=== PATIENT | female | born 1990 | race Caucasian/White ===

== ENCOUNTER 2019-06-16 21:30 | Emergency (ER) | payer SELFPAY ==
--- NOTE | 2019-06-16 23:33 | ER Document Report ---
ED Skin Rash/Insect Bite/Abscs - General Chief Complaint: Skin Problem Stated Complaint: POSSIBLE INFECTION RIGHT LEG Time Seen by Provider: 06/16/19 23:32 Mode of Arrival: Ambulatory Information source: Patient, Parent Notes: HISTORY OF PRESENT ILLNESS: Patient is a 29-year-old female with a past medical history of necrotizing fasciitis of the right leg secondary to IV drug use who presents with pain and drainage from the right leg wound. Patient reports that she had "multiple surgeries" at another facility for necrotizing fasciitis over the last couple months, she also reports she signed out AGAINST MEDICAL ADVICE from her last facility "to build my boyfriend out of shelter, now he is ." She denies fevers or chills, no other symptoms. Mechanism of injury: IV drug use Location: Right lower leg Onset: "Months ago" Provocation: Movement Quality: Burning Radiation: None Severity: Severe Timing: Constant Numbness/Tingling: None Associated symptoms: Denies fevers or chills REVIEW OF SYSTEMS: CONSTITUTIONAL : Denies fever or chills, no sweats. Denies recent illness. EENT: Denies eye, ear, throat, or mouth pain or symptoms. Denies nasal or sinus congestion. CARDIOVASCULAR: Denies chest pain. RESPIRATORY: Denies cough, cold, or chest congestion. Denies shortness of b reath, difficulty breathing, or wheezing. GASTROINTESTINAL: Denies abdominal pain. Denies nausea, vomiting, or diarrhea. Denies constipation. GENITOURINARY: Denies difficulty urinating, painful urination, burning, frequency, or blood in urine. FEMALE GENITOURINARY: Denies vaginal bleeding, abnormal or irregular periods. Last menstrual period MUSCULOSKELETAL: Positive for right leg wound and drainage. Denies neck or back pain or joint pain or swelling. SKIN: Denies rash or skin lesions. HEMATOLOGIC : Denies easy bruising or bleeding. LYMPHATIC: Denies swollen, enlarged glands. NEUROLOGICAL: Denies weakness or paralysis or loss of use of either side. Denies problems with gait or speech. Denies sensory or motor loss. PSYCHIATRIC: Denies anxiety or stress or depression. All other systems reviewed and negative. PHYSICAL EXAMINATION: GENERAL: Well-appearing, well-nourished and in no acute distress. HEAD: Atraumatic, normocephalic. No scalp deformity, depression, or crepitance. EYES: Pupils are 3 mm and equal/round/reactive to light, extraocular movements intact, sclera anicteric, conjunctiva are normal. ENT: Nares patent bilaterally, oropharynx clear without exudates or palatal petechia. Moist mucous membranes. No tonsil hypertrophy. NECK: Normal range of motion, supple without lymphadenopathy. LUNGS: Breath sounds present, equal, and clear to auscultation bilaterally. No wheezes, rales, or rhonchi. HEART: Regular rate and rhythm without murmurs, rubs, or gallops. 2+ peripheral pulses. Normal capillary refill. ABDOMEN: Soft, nontender, nondistended. Normoactive bowel sounds. No guarding, no rebound. No masses appreciated. BACK: Normal contour, no midline tenderness. Rectal exam deferred. GENITAL/PELVC: Deferred. EXTREMITIES: Large 5 cm x 20 cm area of excoriated and friable tissue, granulation tissue appears well vascularized, clear drainage, no purulence or bleeding. Normal range of motion, no obvious deformity. No pitting or edema. N o cyanosis and normal capillary refill <2 seconds. NEUROLOGICAL: No focal neurological deficits. Moves all extremities spontaneously and on command. PSYCH: Normal mood, normal affect. No suicidal thoughts/ideations. No homicidal thoughts/ideations. No hallucinations. SKIN: Warm, dry, normal turgor, no rashes or lesions noted. ASSESSMENT AND PLAN: This patient is a 29-year-old female who presents with concern for cellulitis versus necrotizing fasciitis in the right lower leg. 1. Will obtain labs, total CK level, and CT scan of the right leg. 2. Will give IV morphine for pain control as well as vancomycin for antibiotic coverage. TRAVEL OUTSIDE OF THE [place]. IN LAST 30 DAYS: No - HPI Patient complains to provider of: Skin rash/lesion, Tender/swollen area Onset: Other - "Months ago" Onset/Duration: Gradual Quality of pain: Achy, Burning, Sharp Severity: Severe Pain Level: 5 Skin Character: Drainage, Erythema, Lesion, Tenderness Skin Temperature: Warm Quality of rash: Itchy, Painful, Burning Identify cause: Yes - "Necrotizing infection" Exacerbated by: Movement Relieved by: Denies Similar symptoms previously: Yes Recently seen / treated by doctor: Yes - Related Data Allergies/Adverse Reactions: No Known Allergies Allergy (Unverified 06/16/19 22:56) Past Medical History - General Information source: Patient, Parent - Social History Smoking Status: Never Smoker Chew tobacco use (# tins/day): No Frequency of alcohol use: None Drug Abuse: None Lives with: Family Family History: Reviewed & Not Pertinent Patient has suicidal ideation: No Patient has homicidal ideation: No - Past Medical History Cardiac Medical History: Reports: None Pulmonary Medical History: Reports: None EENT Medical History: Reports: None Neurological Medical History: Reports: None Endocrine Medical History: Reports: None Renal/ Medical History: Reports: None Malignancy Medical History: Reports: None GI Medical History: Reports: None Musculoskeletal Medical History: Reports None Skin Medical History: Reports None Psychiatric Medical History: Reports: None Traumatic Medical History: Reports: None Infectious Medical History: Reports: None Past Surgical History: Reports: Other - History of multiple surgical debridem ents - Immunizations Immunizations up to date: Yes Hx Diphtheria, Pertussis, Tetanus Vaccination: Yes Review of Systems - Review of Systems Constitutional: No symptoms reported EENT: No symptoms reported Cardiovascular: No symptoms reported Respiratory: No symptoms reported Gastrointestinal: No symptoms reported Genitourinary: No symptoms reported Female Genitourinary: No symptoms reported Musculoskeletal: See HPI, Muscle pain, Leg swelling Skin: No symptoms reported Hematologic/Lymphatic: No symptoms reported Neurological/Psychological: No symptoms reported -: Yes All other systems reviewed and negative Physical Exam - Vital signs Vitals: Temp Pulse Resp BP Pulse Ox 98.0 F 90 18 119/83 100 06/16/19 21:36 06/16/19 21:36 06/16/19 21:36 06/16/19 21:36 06/16/19 21:36 Interpretation: Normal - General General appearance: Appears well, Alert - HEENT Head: Normocephalic, Atraumatic Eyes: Normal Pupils: PERRL - Respiratory Respiratory status: No respiratory distress Chest status: Nontender Breath sounds: Normal Chest palpation: Normal - Cardiovascular Rhythm: Regular Heart sounds: Normal auscultation Murmur: No - Abdominal Inspection: Normal Distension: No distension Bowel sounds: Normal Tenderness: Nontender Organomegaly: No organomegaly - Back Back: Normal, Nontender - Extremities General upper extremity: Normal inspection, Nontender, Normal color, Normal ROM, Normal temperature General lower extremity: Normal inspection, Nontender, Normal color, Normal ROM, Normal temperature, Normal weight bearing. No: Roni's sign - Neurological Neuro grossly intact: Yes Cognition: Normal Orientation: AAOx4 Guerda Coma Scale Eye Opening: Spontaneous [place] Coma Scale Verbal: Oriented Guerda Coma Scale Motor: Obeys Commands Guerda Coma Scale Total: 15 Speech: Normal Motor strength normal: LUE, RUE, LLE, RLE Sensory: Normal - Psychological Associated symptoms: Normal affect, Normal mood - Skin Skin Temperature: Warm Skin Moisture: Dry Skin Color: Normal Course - Re-evaluation Re-evalutation: 06/17/19 04:21 Labs are grossly unremarkable, CK level is actually lower than normal. X-rays are unremarkable and CT scan is consistent with cellulitis versus early myositis, no evidence of active osteomyelitis or necrotizing fasciitis. Urine is still pending. Patient will be given IV vancomycin and will be reassessed for possible discharge. 06/17/19 05:38 Will discharge the patient home with strict return precautions and follow-up with primary care as well as wound care. All results were explained to and discussed with the patient and her mother, and all questions addressed and answered for the patient. The patient and her mother voice both understanding and agreeing with the plan. - Vital Signs Vital signs: Temp Pulse Resp BP Pulse Ox 98.0 F 90 18 119/76 99 06/16/19 21:36 06/16/19 21:36 06/16/19 21:36 06/17/19 03:01 06/17/19 03:01 - Laboratory Result Diagrams: 06/16/19 23:41 06/17/19 01:06 Laboratory results interpreted by me: 06/16/19 06/17/19 06/17/19 23:41 01:06 03:26 Hgb 11.8 L Hct 34.7 L RDW 16.0 H Potassium 3.1 L Chloride 112 H Carbon Dioxide 21 L BUN 22 H Creatine Kinase 20 L Urine Protein 30 H Urine Urobilinogen 2.0 H - Diagnostic Test Radiology reviewed: Image reviewed, Reports reviewed Discharge - Discharge Clinical Impression: Cellulitis Qualifiers: Site of cellulitis: extremity Site of cellulitis of extremity: lower extremity Laterality: right Qualified Code(s): L03.115 - Cellulitis of right lower limb Condition: Good Disposition: HOME, SELF-CARE Instructions: Cellulitis ([facility]), Family Physicians / Practices Additional Instructions: You have been evaluated in the Emergency Department for pain in your right lower leg related to an infection called cellulitis. While here, you had blood work and a CT scan and it is now safe to be discharged home. Please follow-up with your primary physician as well as surgery and wound care as instructed in 1 week or soon as possible. Return to the Emergency Department if you experience worsening pain, swelling of your leg, high fevers, increased drainage from your wounds, or any other concerning symptoms. Prescriptions: Ciprofloxacin HCl [Cipro 500 mg Tablet] 500 mg PO BID #28 tablet Diclofenac Sodium 75 mg PO BID #60 tablet. Doxycycline Hyclate 100 mg PO BID #28 capsule Referrals: JANET CHRIS MD [ACTIVE STAFF] - Follow up as needed Print Language: Belarusian
[2019-06-16 23:52] LABS: ABSOLUTE BASOPHILS # (AUTO) 0.1 10^3/uL (0.0-0.2); ABSOLUTE EOSINOPHILS # (AUTO) 0.1 10^3/uL (0.0-0.6); ABSOLUTE LYMPHOCYTES (AUTO) 3.3 10^3/uL (0.5-4.7); ABSOLUTE MONOCYTES (AUTO) 0.8 10^3/uL (0.1-1.4); ABSOLUTE NEUT (AUTO) 5.5 10^3/uL (1.7-8.2); EOSINOPHILS % (AUTO) 1.1 % (0-6); HEMATOCRIT 34.7 % (36.0-47.0); HEMOGLOBIN 11.8 g/dL (12.0-15.5); LYMPHOCYTES % (AUTO) 33.7 % (13-45); MEAN CORPUSCULAR HEMOGLOBIN 29.1 pg (27.0-33.4); MEAN CORPUSCULAR VOLUME 86 fl (80-97); MONOCYTES % (AUTO) 8.2 % (3-13); PLATELET COUNT 380 10^3/uL (150-450); RED BLOOD COUNT 4.06 10^6/uL (3.72-5.28); TOTAL CELLS COUNTED % (AUTO) 100 %; WHITE BLOOD COUNT 9.8 10^3/uL (4.0-10.5)
--- NOTE | 2019-06-17 01:08 | RADIOLOGY REPORT (SQ) ---
Right tibia-fibula two view on 06/17/2019 at 12:16 AM CLINICAL INDICATION: Right leg pain, possible osteomyelitis, necrotizing infection COMPARISON: None FINDINGS: There is no radiopaque foreign body. There are no fractures. Visualized joints are well aligned. No bony abnormality is noted. No definite plain radiographic evidence of osteomyelitis is noted. There is no air in the soft tissues to suggest necrotizing fasciitis. IMPRESSION: No acute abnormality. If there is high clinical concern for osteomyelitis consider MRI.
[2019-06-17] MEDS ORDERED: MORPHINE SULFATE 10 MG/ML INJ IV ONE (01:10)
[2019-06-17 01:46] LABS: ALBUMIN 3.5 g/dL (3.5-5.0); ALKALINE PHOSPHATASE 91 U/L (38-126); ANION GAP 10 (5-19); ASPARTATE AMINO TRANSFERASE 16 U/L (14-36); BILIRUBIN,DIRECT 0.2 mg/dL (0.0-0.4); BILIRUBIN,TOTAL 0.2 mg/dL (0.2-1.3); BLOOD UREA NITROGEN 22 mg/dL (7-20); CALCIUM 8.8 mg/dL (8.4-10.2); CARBON DIOXIDE 21 mmol/L (22-30); CHLORIDE 112 mmol/L (98-107); CREATINE KINASE 20 U/L (30-135); GLUCOSE 104 mg/dL (75-110); POTASSIUM 3.1 mmol/L (3.6-5.0); TOTAL PROTEIN 6.7 g/dL (6.3-8.2)
--- NOTE | 2019-06-17 02:25 | RADIOLOGY REPORT (SQ) ---
EXAM DESCRIPTION: CT LOWER EXTREMITY WITHOUT IV CONTRAST COMPLETED DATE/TME: 06/17/2019 01:10 CLINICAL HISTORY: 29 years, Female, necrotizing infection to right white COMPARISON: Plain films 06/17/2019 TECHNIQUE: 734 Images stored on PACS. All CT scanners at this facility use dose modulation, iterative reconstruction, and/or weight based dosing when appropriate to reduce radiation dose to as low as reasonably achievable (ALARA). [facility]: Dose Right [facility]: CareDose [facility]: Dose Right [facility]: Teradose 4D [facility]: [employer] Technologies LIMITATIONS: None. FINDINGS: There is skin thickening of the leg with underlying inflammatory changes primarily affecting the lateral aspect of the leg. There is no soft tissue gas. No acute osseous abnormality. No discrete or defined fluid collection. IMPRESSION: Cellulitis with a component of suspected underlying myositis involving the distal leg. TECHNICAL DOCUMENTATION: Quality ID # [id number]: Final reports with documentation of one or more dose reduction techniques (e.g., Automated exposure control, adjustment of the mA and/or kV according to patient size, use of iterative reconstruction technique) copyright 2011 [employer]- All Rights Reserved
[2019-06-17] MEDS ORDERED: VANCOMYCIN HCL INJ 1000 MG VIAL IV ONE (03:31)
[2019-06-17 03:39] LABS: APPEARANCE,URINE SLIGHTLY-CLOUDY; BILIRUBIN,URINE NEGATIVE (NEGATIVE); COLOR,URINE YELLOW; GLUCOSE, URINE NEGATIVE (NEGATIVE); KETONES,URINE NEGATIVE (NEGATIVE); LEUKOCYTE ESTERASE,URINE NEGATIVE (NEGATIVE); NITRITE,URINE NEGATIVE (NEGATIVE); PROTEIN,URINE 30 mg/dL (NEGATIVE); URINE SPECIFIC GRAVITY 1.028
[2019-06-17 03:53] LABS: URINE AMPHETAMINES SCREEN NEGATIVE; URINE BARBITURATES SCREEN NEGATIVE; URINE BENZODIAZEPINES SCREEN NEGATIVE; URINE COCAINE SCREEN NEGATIVE; URINE MARIJUANA (THC) SCREEN UNCONFIRMED POSITIVE; URINE METHADONE SCREEN NEGATIVE; URINE PHENCYCLIDINE SCREEN NEGATIVE
[2019-06-17 06:03] VITALS: BP 124/95
== END 2019-06-17 06:03 | disposition home or self-care (01) ==
LOC: ER 21:30
DX: L03.115 Cellulitis of right lower limb (principal)
CPT/HCPCS: 99284; 96375; 96365; 96366; 36415; 82550; 85025; 81025; 80053; 81001; 80307; 73590; 73700; J2270; J3370

== ENCOUNTER 2019-09-21 13:46 | Inpatient (IN) | payer OTHER ==
--- NOTE | 2019-09-21 15:18 | ER Document Report ---
ED Medical Screen (RME) - General Chief Complaint: Chest Pain Stated Complaint: LEFT LEG INFECTION/SHORTNESS OF BREATHE Time Seen by Provider: 09/21/19 15:13 Mode of Arrival: Ambulatory Information source: Patient Notes: 29-year-old female presented to ED for chest pain to the right side of her chest radiates into the right shoulder blade starting for the last week. She states she is having stabbing pains to the right chest with shortness of breath. She also has cellulitis with infection to the right arm and left leg. Both areas she shot up with heroin within the week. She was recently treated with necrotizing fasciitis to the right leg in June of this years. She still has the dressings on to the right leg. She says that area started same with these are. Both areas are swollen. The leg is very red and inflamed it is around the knee area. There are large blisters to the area. I have greeted and performed a rapid initial assessment of this patient. A comprehensive ED assessment and evaluation of the patient, analysis of test results and completion of medical decision making process will be conducted by an additional ED providers. TRAVEL OUTSIDE OF THE U.S. IN LAST 30 DAYS: No - Related Data Allergies/Adverse Reactions: No Known Allergies Allergy (Unverified 06/16/19 22:56) Past Medical History Past Surgical History: Reports: Other - History of multiple surgical debridements - Immunizations Immunizations up to date: Yes Hx Diphtheria, Pertussis, Tetanus Vaccination: Yes
--- NOTE | 2019-09-21 16:25 | RADIOLOGY REPORT (SQ) ---
EXAM DESCRIPTION: CHEST 2 VIEWS COMPLETED DATE/TIME: 09/21/2019 3:40 pm REASON FOR STUDY: chest pain COMPARISON: None. EXAM PARAMETERS: NUMBER OF VIEWS: two views TECHNIQUE: Digital Frontal and Lateral radiographic views of the chest acquired. RADIATION DOSE: NA LIMITATIONS: none FINDINGS: LUNGS AND PLEURA: Patchy right basilar airspace disease with mild to moderate right-sided effusion. No pneumothorax. Minimal left lingular opacities. MEDIASTINUM AND HILAR STRUCTURES: Right infrahilar opacities. HEART AND VASCULAR STRUCTURES: Heart normal size. No evidence for failure. BONES: No acute findings. HARDWARE: None in the chest. OTHER: No other significant finding. IMPRESSION: Patchy right basilar airspace disease with mild to moderate right effusion suspicious fo r pneumonia and parapneumonic effusion. TECHNICAL DOCUMENTATION: JOB ID: [id number] [employer]- All Rights Reserved Reading location - IP/workstation name: [email or web address]
[2019-09-21 16:38] LABS: HEMOGLOBIN 9.9 g/dL (12.0-15.5); MEAN CORPUSCULAR HEMOGLOBIN 27.3 pg (27.0-33.4); MEAN CORPUSCULAR HGB CONC 33.1 g/dL (32.0-36.0); MEAN CORPUSCULAR VOLUME 83 fl (80-97); PLATELET COUNT 309 10^3/uL (150-450); RED BLOOD COUNT 3.64 10^6/uL (3.72-5.28); RED CELL DISTRIBUTION WIDTH 16.6 % (11.5-14.0); WHITE BLOOD COUNT 14.1 10^3/uL (4.0-10.5)
[2019-09-21 17:25] LABS: ABSOLUTE LYMPHOCYTES# (MANUAL) 2.1 10^3/uL (0.5-4.7); ABSOLUTE MONOCYTES # (MANUAL) 0.7 10^3/uL (0.1-1.4); BAND NEUTROPHILS % (MANUAL) 5 % (3-5); BASOPHILS % (MANUAL) 0 % (0-2); EOSINOPHILS % (MANUAL) 4 % (0-6); LYMPHOCYTES % (MANUAL) 14 % (13-45); MONOCYTES % (MANUAL) 5 % (3-13); SEGMENTED NEUTROPHILS % (MAN) 71 % (42-78); TOTAL CELLS COUNTED 100
[2019-09-21 17:27] LABS: ANISOCYTOSIS 1+; PLATELET COMMENT ADEQUATE
[2019-09-21 18:15] LABS: APPEARANCE,URINE SLIGHTLY-CLOUDY; BILIRUBIN,URINE NEGATIVE (NEGATIVE); COLOR,URINE YELLOW; GLUCOSE, URINE NEGATIVE (NEGATIVE); KETONES,URINE NEGATIVE (NEGATIVE); PROTEIN,URINE 100 mg/dL (NEGATIVE); URINE SPECIFIC GRAVITY 1.023
--- NOTE | 2019-09-21 18:30 | EKG REPORT ---
SEVERITY:- BORDERLINE ECG - SINUS RHYTHM BORDERLINE T ABNORMALITIES, ANTERIOR LEADS : Confirmed by: Shemar Saravia MD 21-Sep-2019 18:29:44
[2019-09-21 18:38] LABS: ALBUMIN 2.9 g/dL (3.5-5.0); ALKALINE PHOSPHATASE 183 U/L (38-126); ANION GAP 9 (5-19); ASPARTATE AMINO TRANSFERASE 18 U/L (14-36); BILIRUBIN,DIRECT 0.2 mg/dL (0.0-0.4); BILIRUBIN,TOTAL 0.4 mg/dL (0.2-1.3); BLOOD UREA NITROGEN 14 mg/dL (7-20); CALCIUM 8.1 mg/dL (8.4-10.2); CARBON DIOXIDE 24 mmol/L (22-30); CHLORIDE 107 mmol/L (98-107); GLUCOSE 116 mg/dL (75-110); POTASSIUM 3.1 mmol/L (3.6-5.0); TOTAL PROTEIN 6.8 g/dL (6.3-8.2)
[2019-09-21 18:57] LABS: URINE AMPHETAMINES SCREEN NEGATIVE; URINE BARBITURATES SCREEN NEGATIVE; URINE BENZODIAZEPINES SCREEN NEGATIVE; URINE COCAINE SCREEN NEGATIVE; URINE METHADONE SCREEN NEGATIVE; URINE PHENCYCLIDINE SCREEN NEGATIVE
[2019-09-21 18:58] LABS: URINE MARIJUANA (THC) SCREEN UNCONFIRMED POSITIVE
[2019-09-21] MEDS ORDERED: ACETAMINOPHEN 325 MG TABLET PO ONE (19:09)
[2019-09-21] MEDS ORDERED: KETOROLAC TROMETHAMINE INJ/PF 30 MG/1 ML SDV IV ONE (20:25)
[2019-09-21] MEDS ORDERED: VANCOMYCIN HCL INJ 1000 MG VIAL IV ONE (20:25)
[2019-09-21] MEDS ORDERED: PIPERACILLIN/TAZOBACTAM 3.375 GM VIAL IV ONE (20:25)
--- NOTE | 2019-09-21 20:31 | ER Document Report ---
ED General - General Chief Complaint: Chest Pain Stated Complaint: LEFT LEG INFECTION/SHORTNESS OF BREATHE Time Seen by Provider: 09/21/19 15:13 Mode of Arrival: Ambulatory Notes: Patient is a 29-year-old female that comes to the emergency department for chief complaint of swelling, redness, and now blistering to the left leg that originally occurred around the site of an injection over the left distal medial thigh. Patient also has some redness and pain with bruising and inability to straighten the right elbow. In addition to this patient states that she has developed discomfort and at times sharp pains in the right side of her chest. She denies fever. Symptoms all started about a week ago. Patient has a history of IV drug abuse, she also has had necrotizing fasciitis in the right leg with multiple surgeries back in June at [place]. She denies any daily prescribed medications, pregnancies, or any other complaints. TRAVEL OUTSIDE OF THE [place] IN LAST 30 DAYS: No - Related Data Allergies/Adverse Reactions: No Known Allergies Allergy (Unverified 06/16/19 22:56) Past Medical History - General Information source: Patient - Social History Smoking Status: Current Every Day Smoker Drug Abuse: Heroin, Methamphetamine Lives with: Family Family History: Reviewed & Not Pertinent Patient has suicidal ideation: No Patient has homicidal ideation: No Infectious Medical History: Reports: Other - Necrotizing fasciitis of the right leg Past Surgical History: Reports: Other - History of multiple surgical debridements - Immunizations Immunizations up to date: Yes Hx Diphtheria, Pertussis, Tetanus Vaccination: Yes Review of Systems - Review of Systems Constitutional: No symptoms reported EENT: No symptoms reported Cardiovascular: No symptoms reported Respiratory: See HPI Gastrointestinal: No symptoms reported Genitourinary: No symptoms reported Female Genitourinary: No symptoms reported Musculoskeletal: See HPI Skin: See HPI Hematologic/Lymphatic: No symptoms reported Neurological/Psychological: No symptoms reported Physical Exam - Vital signs Vitals: Temp Pulse Resp BP Pulse Ox 97.9 F 77 16 97/52 L 95 09/21/19 15:14 09/21/19 15:14 09/21/19 15:14 09/21/19 15:14 09/21/19 15:14 - Notes Notes: GENERAL: Alert, interacts well. No acute distress. HEAD: Normocephalic, atraumatic. EYES: Pupils equal, round, and reactive to light. Extraocular movements intact. ENT: Oral mucosa moist, tongue midline. Oropharynx unremarkable. Airway patent. NECK: Full range of motion. Supple. Trachea midline. LUNGS: Clear to auscultation bilaterally, no wheezes, rales, or rhonchi. No respiratory distress. HEART: Occasional cough, no noted abnormal breath sounds, no tachypnea. No signs of trauma. ABDOMEN: Soft, non-tender. Non-distended. EXTREMITIES: There is a widespread area starting at the distal medial thigh extending down past the knee and down to the medial anterior tibial area. This is cellulitic with erythema and mild tenderness, no severe tenderness. There is some blistering over the proximal medial tibial area. No overt areas of induration or fluctuance. Similar erythema and soft tissue swelling over the right AC but without blistering. Range of motion of the knee and elbow are still intact, normal distal neurovascular exam. BACK: no cervical, thoracic, lumbar midline tenderness. No saddle anesthesia, normal distal neurovascular exam. Moves all extremities in full range of motion. NEUROLOGICAL: Alert and oriented x3. Normal speech. Cranial nerves II through XII grossly intact. PSYCH: Normal affect, normal mood. SKIN: Warm, dry, normal turgor. No rashes or lesions noted. Course - Re-evaluation Re-evalutation: I did bring Dr. Green to bedside, he feels that this is cellulitis only, possible underlying abscess, recommends x-ray and ultrasound of the right AC area and the left leg. Chest x-ray indicating pneumonia. CBC shows leukoc ytosis of 14,000. Lactic acid is not elevated. Troponin negative. Patient started on vancomycin and Zosyn because of her concerning exam and history of infections and IV drug abuse. Discussed the patient CTA, this was also recommended by Dr. Green, patient refused. She states she had a CTA within the past 24 hours at [place]. She states that she left AGAINST MEDICAL ADVICE from that facility. We will attempt to obtain records. Concern is for septic pulmonary emboli. We have had extreme delay because we have called [facility] ([facility]) multiple times and they keep stating they are sending the data and we still have not received the data. Delay was approximately 5 hours in total but we finally received a CTA, this does not show septic pulmonary emboli or any other concerning findings of pneumonia as seen on chest x-ray. 09/22/19 03:05 Dr. Winslow accepts to medical floor, requests patient be seen by surgery because of her history of necrotizing fasciitis and the blistering on the leg. 09/22/19 03:[address] Denise and he states he will consult on the patient - Vital Signs Vital signs: Temp Pulse Resp BP Pulse Ox 97.8 F 81 18 104/67 94 09/22/19 06:00 09/22/19 06:00 09/22/19 06:00 09/22/19 06:00 09/22/19 06:00 - Laboratory Result Diagrams: 09/21/19 16:14 09/21/19 16:14 Laboratory results interpreted by me: 09/21/19 09/21/19 09/21/19 16:14 16:14 16:14 WBC 14.1 H RBC 3.64 L Hgb 9.9 L Hct 30.0 L RDW 16.6 H Abs Neuts (Manual) 10.7 H Potassium 3.1 L Glucose 116 H Calcium 8.1 L Alkaline Phosphatase 183 H Creatine Kinase < 20 L Albumin 2.9 L Urine Protein Urine Urobilinogen Leukocyte Esterase Rfl 09/21/19 18:00 WBC RBC Hgb Hct RDW Abs Neuts (Manual) Potassium Glucose Calcium Alkaline Phosphatase Creatine Kinase Albumin Urine Protein 100 H Urine Urobilinogen 2.0 H Leukocyte Esterase Rfl TRACE H - EKG Interpretation by Me Additional EKG results interpreted by me: EKG shows sinus rhythm at a rate of 73, normal axis, QTC of 454, no T wave i nversions or ST segment changes in consecutive leads. Discharge - Discharge Clinical Impression: IV drug abuse Cellulitis Qualifiers: Site of cellulitis: unspecified site Qualified Code(s): L03.90 - Cellulitis, unspecified Pneumonia Qualifiers: Pneumonia type: due to unspecified organism Laterality: right Lung location: lower lobe of lung Qualified Code(s): J18.9 - Pneumonia, unspecified organism Condition: Stable Disposition: ADMITTED INPATIENT Admitting Provider: Goldy (Hospitalist) Unit Admitted: Medical Floor
--- NOTE | 2019-09-21 22:10 | RADIOLOGY REPORT (SQ) ---
EXAM DESCRIPTION: XR ELBOW 3 VIEWS COMPLETED DATE/TME: 09/21/2019 20:52 CLINICAL HISTORY: 29 years, Female, infection; air? Foreign body? COMPARISON: None. NUMBER OF VIEWS: 2 TECHNIQUE: 2 view right elbow LIMITATIONS: None. FINDINGS: Negative for fracture or dislocation. Posterior soft tissue swelling. No soft tissue gas. No radiopaque foreign body. No evidence for joint effusion IMPRESSION: Posterior soft tissue swelling copyright 2010 [employer]- All Rights Reserved
--- NOTE | 2019-09-21 22:11 | RADIOLOGY REPORT (SQ) ---
EXAM DESCRIPTION: XR KNEE 1-2 VIEWS COMPLETED DATE/TME: 09/21/2019 20:52 CLINICAL HISTORY: 29 years, Female, infection; air? foreign body? COMPARISON: Prior study from 06/17/2019. NUMBER OF VIEWS: Two TECHNIQUE: Frontal and lateral radiographs were obtained LIMITATIONS: None. FINDINGS: Visualized osseous structures are normal in appearance. Joint spaces are well-maintained. No acute fracture or dislocation is evident. No significant knee joint effusion. Diffuse soft tissue swelling is noted though no underlying retained radiopaque foreign body or definite soft tissue gas is identified. IMPRESSION: Diffuse soft tissue swelling without underlying acute osseous anomaly. If there is continued concern for soft tissue gas, consider CT. copyright 2010 [employer]- All Rights Reserved
[2019-09-22] MEDS ORDERED: VANCOMYCIN HCL INJ 1000 MG VIAL IV PRN (01:06)
--- NOTE | 2019-09-22 01:06 | RADIOLOGY REPORT (SQ) ---
EXAM DESCRIPTION: US EXTREMITY MUSCULOSKELETAL LIMITED COMPLETED DATE/TME: 09/21/2019 23:18 CLINICAL HISTORY: 29 years, Female, right arm and left leg; abscess? COMPARISON: None TECHNIQUE: Transverse and longitudinal sonographic images in the region of the clinical/palpable abnormality of the right arm and left leg LIMITATIONS: None. FINDINGS: Right arm: No sonographic evidence for abscess. No soft tissue mass. Left leg: Subcutaneous edema. No discrete or defined fluid collection to suggest abscess. IMPRESSION: No sonographic evidence for abscess copyright 2010 [email or web address]- All Rights Reserved
[2019-09-22] MEDS ORDERED: VANCOMYCIN HCL 1,250 MG in DEXTROSE 5%-WATER 250 ML IV ONE (01:15)
[2019-09-22] MEDS ORDERED: MORPHINE SULFATE 10 MG/ML INJ IV ONE (01:38)
[2019-09-22] MEDS ORDERED: ONDANSETRON HCL INJ/PF 4 MG/2 ML SDV IV ONE (01:38)
[2019-09-22] MEDS ORDERED: PIPERACILLIN/TAZOBACTAM 3.375 GM VIAL IV ONE (02:49)
[2019-09-22] MEDS ORDERED: POTASSI CL 20 MEQ/50 ML RIDER 20 MEQ/50 ML RTUPB IV ONE (03:09)
[2019-09-22] MEDS ORDERED: MAGNESIUM HYDROXIDE SUSP 30 ML UDCUP PO PRN (03:11)
[2019-09-22] MEDS ORDERED: MAG HYDROX/AL HYDROX/SIMETH SUSP 30 ML UDCUP PO PRN (03:11)
[2019-09-22] MEDS ORDERED: IPRATROPIUM/ALBUTEROL 0.5-2.5 MG/3 ML AMPUL NEB PRN (03:11)
[2019-09-22] MEDS ORDERED: NORMAL SALINE 1000 ML 1,000 ML IV PRN (03:15)
[2019-09-22] MEDS ORDERED: VANCOMYCIN HCL 0 MG in DEXTROSE 5%-WATER 250 ML IV NR (03:15)
[2019-09-22] MEDS ORDERED: POTASSIUM CHLORIDE 10 MEQ TABLET.ER PO ONE (04:00)
[2019-09-22] MEDS: KETOROLAC TROMETHAMINE INJ/PF 30 MG/1 ML SDV IV PRN ×3 (04:19→19:38)
[2019-09-22] MEDS: ACETAMINOPHEN 325 MG TABLET PO PRN ×3 (04:20→19:39)
[2019-09-22] MEDS: HEPARIN SOD (PORCINE) 5,000 UNIT/ML 1 ML VIAL SUBCUT SCH ×3 (05:06→21:58)
--- NOTE | 2019-09-22 05:35 | PDOC H&P ---
History of Present Illness Admission Date/PCP: 09/22/19 03:14 Patient complains of: Shortness of breath History of Present Illness: HEAVENLY DISLA is a 29 year old female with a past medical history of heroin dependence, IV drug use, MRSA cellulitis, necrotizing fasciitis and recent pneumonia diagnosed at [facility] from which she left AMA. She presents with right arm erythema, left thigh erythema and blistering, shortness of breath with nonproductive cough. She is found to have leukocytosis, anemia and hypokalemia. She complains of 4 days of erythema to the right forearm after attempting IV drug use, 1 week of erythema to the left thigh after attempting IV drug use and 1 week of cough and subjective fever. Ultrasound is negative for fluid collection, surgery is consulted for thigh with blistering and history of necrotizing fasciitis. She receives IV antibiotics and referred to the hospitalist for admission. Past Medical History Cardiac Medical History: Reports: None Pulmonary Medical History: Reports: Bronchitis GI Medical History: Reports: None Musculoskeltal Medical History: Reports: None Skin Medical History: Reports: Other - MRSA cellulitis and necrotizing fasciitis Past Surgical History Past Surgical History: Reports: Other - History of multiple surgical debridements Social History Smoking Status: Current Every Day Smoker Drugs: Heroin Hx Prescription Drug Abuse: No - Advance Directive Resuscitation Status: Full Code Family History Family History: COPD, Hypertension Parental Family History Reviewed: Yes Children Family History Reviewed: Yes Sibling(s) Family History Reviewed.: Yes Medication/Allergy Home Medications: Ciprofloxacin HCl [Cipro 500 mg Tablet] 500 mg PO BID #28 tablet 06/17/19 Diclofenac Sodium 75 mg PO BID #60 tablet. 06/17/19 Doxycycline Hyclate 100 mg PO BID #28 capsule 06/17/19 Allergies/Adverse Reactions: No Known Allergies Allergy (Unverified 06/16/19 22:56) Review of Systems Constitutional: PRESENT: as per HPI, fatigue, fever(s), night sweats. ABSENT: chills, headache(s), weight gain, weight loss Eyes: ABSENT: visual disturbances Ears: ABSENT: hearing changes Cardiovascular: ABSENT: chest pain, dyspnea on exertion, edema, orthropnea, palpitations Respiratory: ABSENT: cough, hemoptysis Gastrointestinal: ABSENT: abdominal pain, constipation, diarrhea, hematemesis, hematochezia, nausea, vomiting Genitourinary: ABSENT: dysuria, hematuria Musculoskeletal: ABSENT: joint swelling Integumentary: ABSENT: rash, wounds Neurological: ABSENT: abnormal gait, abnormal speech, confusion, dizziness, focal weakness, syncope Psychiatric: ABSENT: anxiety, depression, homidical ideation, suicidal ideation Endocrine: ABSENT: cold intolerance, heat intolerance, polydipsia, polyuria Hematologic/Lymphatic: ABSENT: easy bleeding, easy bruising Physical Exam Vital Signs: Temp Pulse Resp BP Pulse Ox 97.9 F 78 20 115/67 94 09/21/19 15:14 09/22/19 04:32 09/22/19 03:01 09/22/19 03:01 09/22/19 03:01 Intake & Output 09/20/19 09/21/19 09/22/19 11:59 11:59 11:59 Intake Total 250 Balance 250 Weight 60.4 kg General appearance: PRESENT: cooperative, disheveled, mild distress Head exam: PRESENT: atraumatic, normocephalic Eye exam: PRESENT: conjunctiva pink, EOMI, PERRLA. ABSENT: scleral icterus Ear exam: PRESENT: normal external ear exam Mouth exam: PRESENT: moist, tongue midline Neck exam: ABSENT: carotid bruit, JVD, lymphadenopathy, thyromegaly Respiratory exam: PRESENT: accessory muscle use, crackles, decreased breath sounds, prolonged expiratory phas, symmetrical Cardiovascular exam: PRESENT: tachycardia. ABSENT: diastolic murmur, rubs, systolic murmur Pulses: PRESENT: normal dorsalis pedis pul Vascular exam: PRESENT: normal capillary refill GI/Abdominal exam: PRESENT: normal bowel sounds, soft. ABSENT: distended, guarding, mass, organolmegaly, rebound, tenderness Rectal exam: PRESENT: deferred Extremities exam: PRESENT: full ROM. ABSENT: calf tenderness, clubbing, pedal edema Neurological exam: PRESENT: altered, CN II-XII grossly intact Psychiatric exam: PRESENT: flat affect, unusual affect. ABSENT: suicidal ideation Skin exam: PRESENT: dry, intact, warm. ABSENT: cyanosis, rash Adult Front & Back Image: 1 - Erythema with blistering 2 - Erythema with edema Results Laboratory Results: 09/21/19 16:14 09/21/19 16:14 09/21/19 09/21/19 09/21/19 16:14 16:14 16:14 WBC 14.1 H RBC 3.64 L Hgb 9.9 L Hct 30.0 L MCV 83 MCH 27.3 MCHC 33.1 RDW 16.6 H Plt Count 309 Seg Neutrophils % Not Reportable Sodium 140.2 Potassium 3.1 L Chloride 107 Carbon Dioxide 24 Anion Gap 9 BUN 14 Creatinine 0.69 Est GFR ( Amer) > 60 Glucose 116 H Calcium 8.1 L Magnesium Total Bilirubin 0.4 AST 18 Alkaline Phosphatase 183 H Total Protein 6.8 Albumin 2.9 L Serum HCG, Qual NEGATIVE Urine Color Urine Appearance Urine pH Ur Specific [place] Urine Protein Urine Glucose (UA) Urine Ketones Urine Blood Urine RBC (Auto) 09/21/19 09/21/19 16:14 18:00 WBC RBC Hgb Hct MCV MCH MCHC RDW Plt Count Seg Neutrophils % Sodium Potassium Chloride Carbon Dioxide Anion Gap BUN Creatinine Est GFR ( Amer) Glucose Calcium Magnesium 2.1 Total Bilirubin AST Alkaline Phosphatase Total Protein Albumin Serum HCG, Qual Urine Color YELLOW Urine Appearance SLIGHTLY-CLOUDY Urine pH 5.0 Ur Specific [place] 1.023 Urine Protein 100 H Urine Glucose (UA) NEGATIVE Urine Ketones NEGATIVE Urine Blood NEGATIVE Urine RBC (Auto) 2 09/21/19 09/21/19 16:14 16:14 Creatine Kinase < 20 L Troponin I < 0.012 Impressions: Chest X-Ray 09/21/19 15:19 IMPRESSION: Patchy right basilar airspace disease with mild to moderate right effusion suspicious for pneumonia and parapneumonic effusion. Elbow X-Ray 09/21/19 20:52 IMPRESSION: Posterior soft tissue swelling copyright 2010 [employer]- All Rights Reserved Knee X-Ray 09/21/19 20:52 IMPRESSION: Diffuse soft tissue swelling without underlying acute osseous anomaly. If there is continued concern for soft tissue gas, consider CT. copyright 2010 [employer]- All Rights Reserved Extremity Ultrasound 09/21/19 23:18 IMPRESSION: No sonographic evidence for abscess copyright 2011 [employer]- All Rights Reserved Assessment and Plan - Diagnosis (1) Pneumonia Qualifiers: Pneumonia type: due to unspecified organism Laterality: right Lung location: lower lobe of lung Qualified Code(s): J18.9 - Pneumonia, unspecified organism Is this a current diagnosis for this admission?: Yes Plan: Pneumonia care set deployed, records from [facility] pending. Empiric antibiotics with vancomycin and Zosyn. (2) Cellulitis Qualifiers: Site of cellulitis: unspecified site Qualified Code(s): L03.90 - Cellulitis, unspecified Is this a current diagnosis for this admission?: Yes Plan: Vancomycin and Zosyn initiated, surgical consult for possible necrotizing fasciitis. Follow-up blood and wound culture (3) IV drug abuse Is this a current diagnosis for this admission?: Yes Plan: Supportive care, opiate PRN withdrawal, consider 2D echo (if not done at [facility]) for evaluation of endocarditis or embolic source of pneumonia. - Time Time Spent with patient: 25-34 minutes - Inpatient Certification Medical Necessity: Need Close Monitoring Due to Risk of Patient Decompensation
[2019-09-22 06:30] LABS: HEMATOCRIT 26.9 % (36.0-47.0); HEMOGLOBIN 9.2 g/dL (12.0-15.5); MEAN CORPUSCULAR HEMOGLOBIN 27.4 pg (27.0-33.4); MEAN CORPUSCULAR HGB CONC 34.1 g/dL (32.0-36.0); MEAN CORPUSCULAR VOLUME 81 fl (80-97); PLATELET COUNT 269 10^3/uL (150-450); RED BLOOD COUNT 3.34 10^6/uL (3.72-5.28); RED CELL DISTRIBUTION WIDTH 16.5 % (11.5-14.0); WHITE BLOOD COUNT 10.4 10^3/uL (4.0-10.5)
[2019-09-22 06:37] LABS: ANION GAP 9 (5-19); BLOOD UREA NITROGEN 11 mg/dL (7-20); CALCIUM 7.8 mg/dL (8.4-10.2); CARBON DIOXIDE 24 mmol/L (22-30); CHLORIDE 106 mmol/L (98-107); GLUCOSE 105 mg/dL (75-110)
--- NOTE | 2019-09-22 06:57 | Operative Report ---
Operative Report DATE OF SURGERY: 09/22/19 PREOPERATIVE DIAGNOSIS: 1. History of IV heroin abuse. 2. History of multiple soft tissue infection. 3. Acute cellulitis left knee POSTOPERATIVE DIAGNOSIS: Same with subcutaneous fluid consistent with undrained infection OPERATION: 1. Superficial debridement of bulla left knee. 2. Focused ultrasound of the left knee SURGEON: JANET CHRIS ANESTHESIA: Other - None TISSUE REMOVED OR ALTERED: skin COMPLICATIONS: None ESTIMATED BLOOD LOSS: None PROCEDURE: The patient's left knee was exposed. Several large bulla were debrided using gloves and fingers. Underlying the bulla areas of beadlike and changes, but no actively draining pus. The left knee was covered with any gel, and skin with a variable frequency linear transducer. Findings were significant for multiple areas of subcutaneous fluid, at several levels, covering a moderate area approximately 8 x 6cm; the fluid was not localized to one pocket. Images were retained. The findings shared with the patient. Impression: Undrained fluid consistent with deeper soft tissue infection left knee Recommendations: 1. Shared the results with the patient. My impression is that this area will need to be operatively drained. She is not interested in that at this time. She would like to try intravenous antibiotics first. 2. We will continue to follow the patient with the hospitalist service.
[2019-09-22 07:02] LABS: ABSOLUTE LYMPHOCYTES# (MANUAL) 2.3 10^3/uL (0.5-4.7); ABSOLUTE MONOCYTES # (MANUAL) 0.6 10^3/uL (0.1-1.4); ANISOCYTOSIS SLIGHT; BAND NEUTROPHILS % (MANUAL) 1 % (3-5); BASOPHILS % (MANUAL) 0 % (0-2); EOSINOPHILS % (MANUAL) 1 % (0-6); LYMPHOCYTES % (MANUAL) 22 % (13-45); MONOCYTES % (MANUAL) 6 % (3-13); PLATELET COMMENT ADEQUATE; SEGMENTED NEUTROPHILS % (MAN) 70 % (42-78); TOTAL CELLS COUNTED 100
--- NOTE | 2019-09-22 07:25 | PDOC CONSULTATION ---
Consultation Consult Date: 09/22/19 Attending physician:: DELFINA CRUZ Provider Consulted: JANET CHRIS Consult reason:: Soft tissue infections History of Present Illness Admission Date/PCP: 09/22/19 03:14 Patient complains of: Soft tissue infections History of Present Illness: HEAVENLY DISLA is a 29 year old female Presents to the emergency department via ground rescue complaining of multiple sites of infection where she has used intravenous heroin. Patient has a history of MRSA soft tissue infection; she is status post right leg surgical debridement of soft tissue infection [facility] several months ago. The patient was evaluated emergency department where she was found to have cellulitis of the right arm, and left knee. Ultrasonography performed by the radiology department demonstrated no jasmine abscess, edema only. Patient was admitted to the hospitalist service with surgery consulting. Past Medical History Past Medical History: Smoker, MRSA soft tissue infection Cardiac Medical History: Reports: None Pulmonary Medical History: Reports: None, Bronchitis GI Medical History: Reports: None Musculoskeltal Medical History: Reports: None Skin Medical History: Reports: Other - MRSA cellulitis and necrotizing fasciitis Past Surgical History Past Surgical History: Reports: Other - History of multiple surgical debridements, including a right lower extremit Social History Lives with: Family Smoking Status: Current Every Day Smoker Drugs: Heroin Hx Prescription Drug Abuse: No - Advance Directive Resuscitation Status: Full Code Family History Family History: None, Reviewed & Not Pertinent Parental Family History Reviewed: No Children Family History Reviewed: No Sibling(s) Family History Reviewed.: No Medication/Allergy Home Medications: Ciprofloxacin HCl [Cipro 500 mg Tablet] 500 mg PO BID #28 tablet 06/17/19 Diclofenac Sodium 75 mg PO BID #60 tablet. 06/17/19 Doxycycline Hyclate 100 mg PO BID #28 capsule 06/17/19 Allergies/Adverse Reactions: No Known Allergies Allergy (Unverified 06/16/19 22:56) Review of Systems Constitutional: PRESENT: as per HPI Eyes: ABSENT: visual disturbances Ears: ABSENT: hearing changes Cardiovascular: ABSENT: chest pain, dyspnea on exertion, edema, orthropnea, palpitations Respiratory: PRESENT: cough Gastrointestinal: ABSENT: abdominal pain, constipation, diarrhea, hematemesis, hematochezia, nausea, vomiting Psychiatric: PRESENT: anxiety Physical Exam Vital Signs: Temp Pulse Resp BP Pulse Ox 97.8 F 81 18 104/67 94 09/22/19 06:00 09/22/19 06:00 09/22/19 06:00 09/22/19 06:00 09/22/19 06:00 Intake & Output 09/21/19 09/22/19 09/23/19 06:59 06:59 06:59 Intake Total 250 Balance 250 Weight 61.4 kg General appearance: PRESENT: no acute distress Head exam: PRESENT: normocephalic Eye exam: PRESENT: EOMI Mouth exam: PRESENT: dry mucosa Neck exam: PRESENT: full ROM Respiratory exam: PRESENT: rhonchi Cardiovascular exam: PRESENT: RRR Pulses: PRESENT: normal carotid pulses, normal radial pulses, normal femoral pulses GI/Abdominal exam: PRESENT: soft Rectal exam: PRESENT: deferred Extremities exam: PRESENT: other - Right upper extremity examined. There are surgical markings with a pen about the elbow. There is minimal erythema and minimal edema. Range of motion intact. Left leg: Multiple large bulla on the medial side of the left knee; soft tissue swollen, erythematous and tender. Patient able to flex and the with minimal restriction. Right leg examined. Dressing removed from lower leg revealing operative debridement site open wound, with granulating surface 5 x 14 cm, with watery biofilm; perimeter epithelial edge migrating inward. Right fourth toe with mild cellulitis and evidence of skin breakdown, no pus Musculoskeletal exam: PRESENT: full ROM Neurological exam: PRESENT: oriented to person, oriented to place, oriented to time, oriented to situation Skin exam: PRESENT: other - As stated above; extensive scars about the lower extremities along the's of the greater saphenous veins Results Laboratory Results: 09/22/19 06:05 09/22/19 06:05 09/21/19 09/21/19 09/21/19 16:14 16:14 16:14 WBC 14.1 H RBC 3.64 L Hgb 9.9 L Hct 30.0 L MCV 83 MCH 27.3 MCHC 33.1 RDW 16.6 H Plt Count 309 Seg Neutrophils % Not Reportable Sodium 140.2 Potassium 3.1 L Chloride 107 Carbon Dioxide 24 Anion Gap 9 BUN 14 Creatinine 0.69 Est GFR ( Amer) > 60 Glucose 116 H Calcium 8.1 L Magnesium Total Bilirubin 0.4 AST 18 Alkaline Phosphatase 183 H Total Protein 6.8 Albumin 2.9 L Serum HCG, Qual NEGATIVE Urine Color Urine Appearance Urine pH Ur Specific [place] Urine Protein Urine Glucose (UA) Urine Ketones Urine Blood Urine RBC (Auto) 09/21/19 09/21/19 09/22/19 16:14 18:00 06:05 WBC RBC Hgb Hct MCV MCH MCHC RDW Plt Count Seg Neutrophils % Sodium 139.3 Potassium 3.0 L* Chloride 106 Carbon Dioxide 24 Anion Gap 9 BUN 11 Creatinine 0.61 Est GFR ( Amer) > 60 Glucose 105 Calcium 7.8 L Magnesium 2.1 Total Bilirubin AST Alkaline Phosphatase Total Protein Albumin Serum HCG, Qual Urine Color YELLOW Urine Appearance SLIGHTLY-CLOUDY Urine pH 5.0 Ur Specific [place] 1.023 Urine Protein 100 H Urine Glucose (UA) NEGATIVE Urine Ketones NEGATIVE Urine Blood NEGATIVE Urine RBC (Auto) 2 09/22/19 06:05 WBC 10.4 RBC 3.34 L Hgb 9.2 L Hct 26.9 L MCV 81 MCH 27.4 MCHC 34.1 RDW 16.5 H Plt Count 269 Seg Neutrophils % Not Reportable Sodium Potassium Chloride Carbon Dioxide Anion Gap BUN Creatinine Est GFR ( Amer) Glucose Calcium Magnesium Total Bilirubin AST Alkaline Phosphatase Total Protein Albumin Serum HCG, Qual Urine Color Urine Appearance Urine pH Ur Specific [place] Urine Protein Urine Glucose (UA) Urine Ketones Urine Blood Urine RBC (Auto) 09/21/19 09/21/19 16:14 16:14 Creatine Kinase < 20 L Troponin I < 0.012 Impressions: Chest X-Ray 09/21/19 15:19 IMPRESSION: Patchy right basilar airspace disease with mild to moderate right effusion suspicious for pneumonia and parapneumonic effusion. Elbow X-Ray 09/21/19 20:52 IMPRESSION: Posterior soft tissue swelling copyright 2010 [email or web address]- All Rights Reserved Knee X-Ray 09/21/19 20:52 IMPRESSION: Diffuse soft tissue swelling without underlying acute osseous anomaly. If there is continued concern for soft tissue gas, consider CT. copyright 2011 [email or web address]- All Rights Reserved Extremity Ultrasound 09/21/19 23:18 IMPRESSION: No sonographic evidence for abscess copyright 2010 [email or web address]- All Rights Reserved Assessment & Plan - Diagnosis (1) Cellulitis Qualifiers: Site of cellulitis: unspecified site Qualified Code(s): L03.90 - Cellulitis, unspecified Is this a current diagnosis for this admission?: Yes Plan: Impression: Acute cellulitis of the left knee suspicious for undrained infection in 29-year-old female with history of IV drug abuse Recommendations: 1. At bedside I debrided the superficial bullae of the left knee; patient tolerated this well. We will start Xeroform dressing change. 2. I repeated the ultrasound of the left knee at bedside this morning. There is undrained fluid in the intermediate and deep layer of the subcutaneous space consistent with undrained fluid. I recommended the patient this be drained but she is not interested at this time and would like to try intravenous antibiotics first. 3. Patient has a chronic wound right lower extremity. There is no further debridement. We will start dressing changes to this wound as well. 4. The surgical service will continue to follow patient in consultation. Patient understands that she may need the left knee debrided. (2) IV drug abuse Is this a current diagnosis for this admission?: Yes (3) Pneumonia Qualifiers: Pneumonia type: due to unspecified organism Laterality: right Lung location: lower lobe of lung Qualified Code(s): J18.9 - Pneumonia, unspecified organism Is this a current diagnosis for this admission?: Yes (4) Smoker Is this a current diagnosis for this admission?: Yes - Time Time Spent: 50 to 70 Minutes Smoking Cessation Education: over 10 minutes Medications reviewed and adjusted accordingly: Yes Anticipated discharge: Home - Inpatient Certification Based on my medical assessment, after consideration of the patient's comorbidit ies, presenting symptoms, or acuity I expect that the services needed warrant INPATIENT care.: Yes I certify that my determination is in accordance with my understanding of Me minh's requirements for reasonable and necessary INPATIENT services [42 CFR 412.3e].: Yes Medical Necessity: Need For IV Fluids, Need for Pain Control, Need for IV Antibiotics, Need for Surgery
[2019-09-22] MEDS: IPRATROPIUM/ALBUTEROL 0.5-2.5 MG/3 ML AMPUL NEB SCH ×3 (07:49→23:43)
--- NOTE | 2019-09-22 08:44 | PDOC PROGRESS REPORT ---
Subjective Progress Note for:: 09/22/19 Reason For Visit: PNA CELLULITIS, IVDU Physical Exam Vital Signs: Temp Pulse Resp BP Pulse Ox 97.8 F 77 18 104/67 94 09/22/19 06:00 09/22/19 07:00 09/22/19 06:00 09/22/19 06:00 09/22/19 06:00 Intake & Output 09/21/19 09/22/19 09/23/19 06:59 06:59 06:59 Intake Total 250 Balance 250 Weight 61.4 kg General appearance: PRESENT: no acute distress Head exam: PRESENT: normocephalic Eye exam: PRESENT: EOMI Ear exam: PRESENT: normal external ear exam Mouth exam: PRESENT: dry mucosa Teeth exam: PRESENT: poor dentation Neck exam: PRESENT: full ROM Respiratory exam: PRESENT: clear to auscultation neda Cardiovascular exam: PRESENT: RRR Pulses: PRESENT: normal radial pulses, normal femoral pulses Vascular exam: PRESENT: normal capillary refill GI/Abdominal exam: PRESENT: soft Rectal exam: PRESENT: deferred Extremities exam: PRESENT: full ROM, other - multiple surgical scars bilat left dipti with blistering cellulitis from knee down to mid ant calf better according to pt Neurological exam: PRESENT: alert Skin exam: PRESENT: abrasion, skin tears, warm Results Laboratory Results: 09/22/19 06:05 09/22/19 06:05 09/21/19 09/21/19 09/21/19 16:14 16:14 16:14 WBC 14.1 H RBC 3.64 L Hgb 9.9 L Hct 30.0 L MCV 83 MCH 27.3 MCHC 33.1 RDW 16.6 H Plt Count 309 Seg Neutrophils % Not Reportable Sodium 140.2 Potassium 3.1 L Chloride 107 Carbon Dioxide 24 Anion Gap 9 BUN 14 Creatinine 0.69 Est GFR ( Amer) > 60 Glucose 116 H Calcium 8.1 L Magnesium Total Bilirubin 0.4 AST 18 Alkaline Phosphatase 183 H Total Protein 6.8 Albumin 2.9 L Serum HCG, Qual NEGATIVE Urine Color Urine Appearance Urine pH Ur Specific [place] Urine Protein Urine Glucose (UA) Urine Ketones Urine Blood Urine RBC (Auto) 09/21/19 09/21/19 09/22/19 16:14 18:00 06:05 WBC RBC Hgb Hct MCV MCH MCHC RDW Plt Count Seg Neutrophils % Sodium 139.3 Potassium 3.0 L* Chloride 106 Carbon Dioxide 24 Anion Gap 9 BUN 11 Creatinine 0.61 Est GFR ( Amer) > 60 Glucose 105 Calcium 7.8 L Magnesium 2.1 Total Bilirubin AST Alkaline Phosphatase Total Protein Albumin Serum HCG, Qual Urine Color YELLOW Urine Appearance SLIGHTLY-CLOUDY Urine pH 5.0 Ur Specific [place] 1.023 Urine Protein 100 H Urine Glucose (UA) NEGATIVE Urine Ketones NEGATIVE Urine Blood NEGATIVE Urine RBC (Auto) 2 09/22/19 06:05 WBC 10.4 RBC 3.34 L Hgb 9.2 L Hct 26.9 L MCV 81 MCH 27.4 MCHC 34.1 RDW 16.5 H Plt Count 269 Seg Neutrophils % Not Reportable Sodium Potassium Chloride Carbon Dioxide Anion Gap BUN Creatinine Est GFR ( Amer) Glucose Calcium Magnesium Total Bilirubin AST Alkaline Phosphatase Total Protein Albumin Serum HCG, Qual Urine Color Urine Appearance Urine pH Ur Specific [place] Urine Protein Urine Glucose (UA) Urine Ketones Urine Blood Urine RBC (Auto) 09/21/19 09/21/19 16:14 16:14 Creatine Kinase < 20 L Troponin I < 0.012 Impressions: Chest X-Ray 09/21/19 15:19 IMPRESSION: Patchy right basilar airspace disease with mild to moderate right effusion suspicious for pneumonia and parapneumonic effusion. Elbow X-Ray 09/21/19 20:52 IMPRESSION: Posterior soft tissue swelling copyright 2011 [employer] All Rights Reserved Knee X-Ray 09/21/19 20:52 IMPRESSION: Diffuse soft tissue swelling without underlying acute osseous anomaly. If there is continued concern for soft tissue gas, consider CT. copyright 2011 [employer] All Rights Reserved Extremity Ultrasound 09/21/19 23:18 IMPRESSION: No sonographic evidence for abscess copyright 2011 [employer] All Rights Reserved Assessment & Plan - Time Time Spent with patient: 35 or more minutes - Plan Summary Plan Summary: cellulitis with poss sub cutaneous abscess left knee pt offered surgery twice by Dr Hernandez and by me this moring still refusing, wants to cont only iv abx will cont to follow. I explained the risks of infection extending to joint and extremity loss she understands .
[2019-09-22] MEDS: PIPERACILLIN SODIUM/TAZOBACTAM 4.5 GM in NORMAL SALINE 100 ML IV SCH ×3 (08:55→21:54)
[2019-09-22] MEDS: DOCUSATE SODIUM 100 MG CAPSULE PO SCH ×2 (08:59→17:16)
[2019-09-22] MEDS: VANCOMYCIN HCL 1,250 MG in DEXTROSE 5%-WATER 250 ML IV SCH (15:16)
[2019-09-22] MEDS: POTASSIUM CHLORIDE 10 MEQ TABLET.ER PO SCH (17:14)
[2019-09-23] MEDS: VANCOMYCIN HCL 1,250 MG in DEXTROSE 5%-WATER 250 ML IV SCH ×2 (01:34→13:59)
[2019-09-23] MEDS: PIPERACILLIN SODIUM/TAZOBACTAM 4.5 GM in NORMAL SALINE 100 ML IV SCH ×4 (04:44→21:06)
[2019-09-23] MEDS: KETOROLAC TROMETHAMINE INJ/PF 30 MG/1 ML SDV IV PRN ×3 (04:44→21:08)
[2019-09-23] MEDS: ACETAMINOPHEN 325 MG TABLET PO PRN ×3 (04:44→21:07)
[2019-09-23 06:28] LABS: ALBUMIN 2.3 g/dL (3.5-5.0); ALKALINE PHOSPHATASE 127 U/L (38-126); ANION GAP 7 (5-19); ASPARTATE AMINO TRANSFERASE 11 U/L (14-36); BILIRUBIN,DIRECT 0.1 mg/dL (0.0-0.4); BILIRUBIN,TOTAL 0.2 mg/dL (0.2-1.3); BLOOD UREA NITROGEN 11 mg/dL (7-20); CARBON DIOXIDE 25 mmol/L (22-30); CHLORIDE 109 mmol/L (98-107); GLUCOSE 88 mg/dL (75-110); HEMATOCRIT 24.1 % (36.0-47.0); HEMOGLOBIN 8.2 g/dL (12.0-15.5); MEAN CORPUSCULAR HEMOGLOBIN 27.2 pg (27.0-33.4); MEAN CORPUSCULAR HGB CONC 33.9 g/dL (32.0-36.0); MEAN CORPUSCULAR VOLUME 80 fl (80-97); PLATELET COUNT 246 10^3/uL (150-450); POTASSIUM 3.6 mmol/L (3.6-5.0); RED CELL DISTRIBUTION WIDTH 16.2 % (11.5-14.0); TOTAL PROTEIN 5.8 g/dL (6.3-8.2); WHITE BLOOD COUNT 9.4 10^3/uL (4.0-10.5)
[2019-09-23] MEDS: POTASSIUM CHLORIDE 10 MEQ TABLET.ER PO SCH (06:40)
[2019-09-23] MEDS: HEPARIN SOD (PORCINE) 5,000 UNIT/ML 1 ML VIAL SUBCUT SCH ×3 (06:40→21:00)
[2019-09-23 07:18] LABS: ABSOLUTE MONOCYTES # (MANUAL) 0.7 10^3/uL (0.1-1.4); BASOPHILS % (MANUAL) 0 % (0-2); EOSINOPHILS % (MANUAL) 2 % (0-6); LYMPHOCYTES % (MANUAL) 32 % (13-45); METAMYELOCYTES % (MANUAL) 3 % (0-1); MONOCYTES % (MANUAL) 7 % (3-13); MYELOCYTES % (MANUAL) 1 % (0); SEGMENTED NEUTROPHILS % (MAN) 55 % (42-78); TOTAL CELLS COUNTED 100
[2019-09-23 07:19] LABS: ANISOCYTOSIS SLIGHT; TOXIC GRANULATION SLIGHT
[2019-09-23 07:20] LABS: PLATELET COMMENT ADEQUATE
[2019-09-23] MEDS: IPRATROPIUM/ALBUTEROL 0.5-2.5 MG/3 ML AMPUL NEB SCH ×2 (08:00→15:47)
[2019-09-23] MEDS: DOCUSATE SODIUM 100 MG CAPSULE PO SCH ×2 (09:27→17:08)
[2019-09-23 11:52] LABS: PATH REVIEW PATHOLOGIST REVIEWED
--- NOTE | 2019-09-23 12:01 | PDOC PROGRESS REPORT ---
Subjective Progress Note for:: 09/23/19 Subjective:: HEAVENLY DISLA is a 29 year old female with a past medical history of heroin dependence, IV drug use, MRSA cellulitis, necrotizing fasciitis and recent pneumonia diagnosed at [facility] from which she left AMA. She presents with right arm erythema, left thigh erythema and blistering, shortness of breath with nonproductive cough. She is found to have leukocytosis, anemia and hypokalemia. She complains of 4 days of erythema to the right forearm after attempting IV drug use, 1 week of erythema to the left thigh after attempting IV drug use and 1 week of cough and subjective fever. Ultrasound is negative for fluid collection, surgery is consulted for thigh with blistering and history of necrotizing fasciitis. She receives IV antibiotics and referred to the hospitalist for admission. 09/23/2019. No acute events overnight. Patient still complaining of left lower extremity erythema and pain, denies having any discharge, denies any fever, chills, nausea, vomiting, diarrhea, constipation or any urinary symptoms. P.o. tolerant and having normal bowel and bladder movements. Reason For Visit: PNA CELLULITIS, IVDU Physical Exam Vital Signs: Temp Pulse Resp BP Pulse Ox 98.3 F 72 16 100/62 94 09/23/19 07:36 09/23/19 08:00 09/23/19 08:00 09/23/19 08:41 09/23/19 08:00 Intake & Output 09/22/19 09/23/19 09/24/19 06:59 06:59 06:59 Intake Total 250 2580 Balance 250 2580 Weight 61.4 kg 61.4 kg General appearance: PRESENT: no acute distress, well-developed, well-nourished Respiratory exam: PRESENT: clear to auscultation neda. ABSENT: rales, rhonchi, wheezes Cardiovascular exam: PRESENT: RRR. ABSENT: diastolic murmur, rubs, systolic m urmur GI/Abdominal exam: PRESENT: normal bowel sounds, soft. ABSENT: distended, guarding, mass, organolmegaly, rebound, tenderness Extremities exam: PRESENT: full ROM, tenderness, other - Left lower extremity medial aspect proximal to the knee joint crusting and erythema TTP with no apparent discharge. Neurovascularly intact.. ABSENT: calf tenderness, clubbing, pedal edema Neurological exam: PRESENT: alert, awake, oriented to person, oriented to place, oriented to time, oriented to situation, CN II-XII grossly intact. ABSENT: motor sensory deficit Results Laboratory Results: 09/23/19 05:37 09/23/19 05:37 09/22/19 09/23/19 09/23/19 18:56 05:37 05:37 WBC 9.4 RBC 3.00 L Hgb 8.2 L Hct 24.1 L MCV 80 MCH 27.2 MCHC 33.9 RDW 16.2 H Plt Count 246 Seg Neutrophils % Not Reportable Sodium 140.6 Potassium 3.6 3.6 Chloride 109 H Carbon Dioxide 25 Anion Gap 7 BUN 11 Creatinine 0.54 Est GFR ( Amer) > 60 Glucose 88 Calcium 8.0 L Magnesium 1.8 Total Bilirubin 0.2 AST 11 L Alkaline Phosphatase 127 H Total Protein 5.8 L Albumin 2.3 L 09/21/19 09/21/19 16:14 16:14 Creatine Kinase < 20 L Troponin I < 0.012 Impressions: Chest X-Ray 09/21/19 15:19 IMPRESSION: Patchy right basilar airspace disease with mild to moderate right effusion suspicious for pneumonia and parapneumonic effusion. Elbow X-Ray 09/21/19 20:52 IMPRESSION: Posterior soft tissue swelling copyright 2010 [employer]- All Rights Reserved Knee X-Ray 09/21/19 20:52 IMPRESSION: Diffuse soft tissue swelling without underlying acute osseous anomaly. If there is continued concern for soft tissue gas, consider CT. copyright 2010 [employer] All Rights Reserved Extremity Ultrasound 09/21/19 23:18 IMPRESSION: No sonographic evidence for abscess copyright 2010 [employer]- All Rights Reserved Assessment and Plan - Diagnosis (1) Cellulitis Qualifiers: Site of cellulitis: extremity Site of cellulitis of extremity: lower extremity Laterality: right Qualified Code(s): L03.115 - Cellulitis of right lower limb Is this a current diagnosis for this admission?: Yes Plan: Improving. WBC WNL. Afebrile. Blood cultures no growth x24 hours. Left lower extremity ultrasound negative for any abscess gas pockets. 09/22/2019. Left lower extremity ultrasound. Left lower extremity ultrasound no sonographic evidence for abscess. 09/21/2019. Left knee x-ray. Diffuse soft tissue swelling without underlying osseous abnormality. 09/21/2019. CXR. Patchy right basilar airspace disease with mild to moderate right effusion suspicious for pneumonia and parapneumonic effusion. 09/21/2019. Right elbow x-ray. Posterior soft tissue swelling. Due to IV antibiotics. Day 2 IV vancomycin. Day 2 IV Zosyn. Surgery consulted. Patient has refused undergoing any surgery at this point. Continue empiric IV antibiotics. Follow-up blood cultures. (2) IV drug abuse Is this a current diagnosis for this admission?: Yes Plan: Supportive care, opiate PRN withdrawal, consider 2D echo (if not done at [place]) for evaluation of endocarditis or embolic source of pneumonia. (3) Smoker Is this a current diagnosis for this admission?: Yes (4) Pneumonia Qualifiers: Pneumonia type: due to unspecified organism Laterality: right Lung location: lower lobe of lung Qualified Code(s): J18.9 - Pneumonia, unspecified organism Is this a current diagnosis for this admission?: Yes Plan: Likely polymicrobial or cardioembolic given history of story of drug abuse, necrotizing fasciitis Pending records from [facility] pending. 09/21/2019. CXR. Patchy right basilar airspace disease with mild to moderate right effusion suspicious for pneumonia and parapneumonic effusion. Continue empiric IV antibiotics. Cultures negative so far.
[2019-09-23 14:33] LABS: VANCOMYCIN,TROUGH 9.2 ug/mL (5.0-20.0)
--- NOTE | 2019-09-23 18:16 | PDOC PROGRESS REPORT ---
Subjective Progress Note for:: 09/23/19 Subjective:: 29-year-old female with a left lower extremity abscess, medial to the left knee. The abscess is worsening. She complains of pain. She denies fevers or chills. She denies chest pain, shortness of breath, abdominal pain, nausea, vomiting, headache, dizziness, orthostasis, blurry vision. Reason For Visit: PNA CELLULITIS, IVDU Physical Exam Vital Signs: Temp Pulse Resp BP Pulse Ox 98.4 F 68 16 113/58 L 97 09/23/19 12:29 09/23/19 15:48 09/23/19 15:48 09/23/19 12:29 09/23/19 15:48 Intake & Output 09/22/19 09/23/19 09/24/19 06:59 06:59 06:59 Intake Total 250 2580 865 Balance 250 2580 865 Weight 61.4 kg 61.4 kg General appearance: PRESENT: no acute distress Head exam: PRESENT: atraumatic, normocephalic Eye exam: PRESENT: EOMI, PERRLA. ABSENT: scleral icterus Mouth exam: PRESENT: moist, neck supple Neck exam: ABSENT: meningismus, tenderness, thyromegaly, tracheal deviation Respiratory exam: PRESENT: clear to auscultation neda. ABSENT: chest wall tenderness Cardiovascular exam: PRESENT: RRR Pulses: PRESENT: normal radial pulses Vascular exam: PRESENT: normal capillary refill GI/Abdominal exam: PRESENT: soft. ABSENT: rebound, rigid, tenderness Rectal exam: PRESENT: deferred Extremities exam: PRESENT: other - Skin of the left knee with erythema, induration, fluctuance, and overlying skin necrosis.. ABSENT: clubbing Musculoskeletal exam: ABSENT: deformity Neurological exam: PRESENT: alert, awake, CN II-XII grossly intact Psychiatric exam: ABSENT: agitated, anxious, depressed Focused psych exam: ABSENT: delusional Skin exam: PRESENT: erythema. ABSENT: jaundice Results Laboratory Results: 09/23/19 05:37 09/23/19 13:37 09/22/19 09/23/19 09/23/19 18:56 05:37 05:37 WBC 9.4 RBC 3.00 L Hgb 8.2 L Hct 24.1 L MCV 80 MCH 27.2 MCHC 33.9 RDW 16.2 H Plt Count 246 Seg Neutrophils % Not Reportable Sodium 140.6 Potassium 3.6 3.6 Chloride 109 H Carbon Dioxide 25 Anion Gap 7 BUN 11 Creatinine 0.54 Est GFR ( Amer) > 60 Glucose 88 Calcium 8.0 L Magnesium 1.8 Total Bilirubin 0.2 AST 11 L Alkaline Phosphatase 127 H Total Protein 5.8 L Albumin 2.3 L 09/23/19 13:37 WBC RBC Hgb Hct MCV MCH MCHC RDW Plt Count Seg Neutrophils % Sodium Potassium Chloride Carbon Dioxide Anion Gap BUN Creatinine 0.56 Est GFR ( Amer) > 60 Glucose Calcium Magnesium Total Bilirubin AST Alkaline Phosphatase Total Protein Albumin 09/21/19 09/21/19 16:14 16:14 Creatine Kinase < 20 L Troponin I < 0.012 Impressions: Chest X-Ray 09/21/19 15:19 IMPRESSION: Patchy right basilar airspace disease with mild to moderate right effusion suspicious for pneumonia and parapneumonic effusion. Elbow X-Ray 09/21/19 20:52 IMPRESSION: Posterior soft tissue swelling copyright 2010 [email or web address]- All Rights Reserved Knee X-Ray 09/21/19 20:52 IMPRESSION: Diffuse soft tissue swelling without underlying acute osseous anomaly. If there is continued concern for soft tissue gas, consider CT. copyright 2010 [employer] All Rights Reserved Extremity Ultrasound 09/21/19 23:18 IMPRESSION: No sonographic evidence for abscess copyright 2010 [email or web address]- All Rights Reserved Assessment & Plan - Diagnosis (1) Abscess of left lower extremity Is this a current diagnosis for this admission?: Yes - Time Time Spent with patient: Less than 15 minutes - Plan Summary Plan Summary: This a 29-year-old female with an obvious left lower extremity abscess with overlying skin necrosis. There is erythema, purple discoloration of the skin consistent with developing/worsening skin necrosis, fluctuance, and induration. I have discussed medical and surgical treatment of abscesses. The patient is still resistant to surgical intervention. This is the third day in a row that she has refused surgery. I have discussed with her the absolute necessity of surgery in order to resolve her infection. She has expressed understanding. Continued refusal of surgery may result in loss of life or limb. She is still resistant. Surgery will at this time sign off. When the patient has agreed to surgical intervention, please renotify.
[2019-09-23] MEDS: VANCOMYCIN HCL 1,000 MG in DEXTROSE 5%-WATER 250 ML IV SCH (21:09)
[2019-09-24] MEDS: IPRATROPIUM/ALBUTEROL 0.5-2.5 MG/3 ML AMPUL NEB SCH ×3 (01:00→18:05)
[2019-09-24] MEDS: PIPERACILLIN SODIUM/TAZOBACTAM 4.5 GM in NORMAL SALINE 100 ML IV SCH ×4 (02:30→22:02)
[2019-09-24] MEDS: VANCOMYCIN HCL 1,000 MG in DEXTROSE 5%-WATER 250 ML IV SCH ×2 (05:33→15:01)
[2019-09-24] MEDS: HEPARIN SOD (PORCINE) 5,000 UNIT/ML 1 ML VIAL SUBCUT SCH ×3 (05:37→22:17)
[2019-09-24 05:50] LABS: HEMATOCRIT 29.2 % (36.0-47.0); HEMOGLOBIN 9.8 g/dL (12.0-15.5); MEAN CORPUSCULAR HEMOGLOBIN 27.2 pg (27.0-33.4); MEAN CORPUSCULAR HGB CONC 33.5 g/dL (32.0-36.0); MEAN CORPUSCULAR VOLUME 81 fl (80-97); PLATELET COUNT 315 10^3/uL (150-450); RED BLOOD COUNT 3.58 10^6/uL (3.72-5.28); RED CELL DISTRIBUTION WIDTH 16.6 % (11.5-14.0); WHITE BLOOD COUNT 9.1 10^3/uL (4.0-10.5)
[2019-09-24 06:21] LABS: ALKALINE PHOSPHATASE 132 U/L (38-126); ANION GAP 12 (5-19); ASPARTATE AMINO TRANSFERASE 22 U/L (14-36); BILIRUBIN,DIRECT 0.4 mg/dL (0.0-0.4); BILIRUBIN,TOTAL 0.5 mg/dL (0.2-1.3); BLOOD UREA NITROGEN 13 mg/dL (7-20); CARBON DIOXIDE 23 mmol/L (22-30); CHLORIDE 106 mmol/L (98-107); GLUCOSE 72 mg/dL (75-110); POTASSIUM 4.1 mmol/L (3.6-5.0); TOTAL PROTEIN 7.3 g/dL (6.3-8.2)
[2019-09-24 06:22] LABS: ABSOLUTE LYMPHOCYTES# (MANUAL) 2.6 10^3/uL (0.5-4.7); ANISOCYTOSIS 1+; BAND NEUTROPHILS % (MANUAL) 4 % (3-5); BASOPHILS % (MANUAL) 0 % (0-2); EOSINOPHILS % (MANUAL) 3 % (0-6); LYMPHOCYTES % (MANUAL) 29 % (13-45); MONOCYTES % (MANUAL) 11 % (3-13); PLATELET COMMENT ADEQUATE; SEGMENTED NEUTROPHILS % (MAN) 53 % (42-78); TOTAL CELLS COUNTED 100
[2019-09-24] MEDS: DOCUSATE SODIUM 100 MG CAPSULE PO SCH ×2 (09:19→17:12)
[2019-09-24] MEDS: ACETAMINOPHEN 325 MG TABLET PO PRN ×2 (10:07→21:58)
--- NOTE | 2019-09-24 13:09 | PDOC PROGRESS REPORT ---
Subjective Progress Note for:: 09/24/19 Subjective:: HEAVENLY DISLA is a 29 year old female with a past medical history of heroin dependence, IV drug use, MRSA cellulitis, necrotizing fasciitis and recent pneumonia diagnosed at [facility] from which she left A. She presents with right arm erythema, left thigh erythema and blistering, shortness of breath with nonproductive cough. She is found to have leukocytosis, anemia and hypokalemia. She complains of 4 days of erythema to the right forearm after attempting IV drug use, 1 week of erythema to the left thigh after attempting IV drug use and 1 week of cough and subjective fever. Ultrasound is negative for fluid collection, surgery is consulted for thigh with blistering and history of necrotizing fasciitis. She receives IV antibiotics and referred to the hospitalist for admission. 09/23/2019. No acute events overnight. Patient still complaining of left lower extremity erythema and pain, denies having any discharge, denies any fever, chills, nausea, vomiting, diarrhea, constipation or any urinary symptoms. P.o. tolerant and having normal bowel and bladder movements. 09/24/2019. No acute events overnight. Patient still complaining of left lower extremity pain, denies any fever, chills, nausea, vomiting, diarrhea, constipation or any urinary symptoms. Patient is willing to undergo surgery. Reason For Visit: PNA CELLULITIS, IVDU Physical Exam Vital Signs: Temp Pulse Resp BP Pulse Ox 98.0 F 65 16 118/73 94 09/24/19 11:18 09/24/19 11:18 09/24/19 11:18 09/24/19 11:18 09/24/19 11:18 Intake & Output 09/23/19 09/24/19 09/25/19 06:59 06:59 06:59 Intake Total 2580 1835 250 Balance 2580 1835 250 Weight 61.4 kg 62.3 kg General appearance: PRESENT: no acute distress, well-developed, well-nourished Head exam: PRESENT: atraumatic, normocephalic Respiratory exam: PRESENT: clear to auscultation neda. ABSENT: rales, rhonchi, wheezes Cardiovascular exam: PRESENT: RRR. ABSENT: diastolic murmur, rubs, systolic murmur GI/Abdominal exam: PRESENT: normal bowel sounds, soft. ABSENT: distended, guarding, mass, organolmegaly, rebound, tenderness Extremities exam: PRESENT: joint swelling, other - Right distal knee medial aspect, erythema, swelling with necrotic tissue no discharge. Neurovascularly intact. Results Laboratory Results: 09/24/19 05:22 09/24/19 05:22 09/23/19 09/24/19 09/24/19 13:37 05:22 05:22 WBC 9.1 RBC 3.58 L Hgb 9.8 L Hct 29.2 L MCV 81 MCH 27.2 MCHC 33.5 RDW 16.6 H Plt Count 315 Seg Neutrophils % Not Reportable Sodium 140.7 Potassium 4.1 Chloride 106 Carbon Dioxide 23 Anion Gap 12 BUN 13 Creatinine 0.56 0.58 Est GFR ( Amer) > 60 > 60 Glucose 72 L Calcium 9.0 Total Bilirubin 0.5 AST 22 Alkaline Phosphatase 132 H Total Protein 7.3 Albumin 3.0 L 09/21/19 09/21/19 16:14 16:14 Creatine Kinase < 20 L Troponin I < 0.012 Impressions: Chest X-Ray 09/21/19 15:19 IMPRESSION: Patchy right basilar airspace disease with mild to moderate right effusion suspicious for pneumonia and parapneumonic effusion. Elbow X-Ray 09/21/19 20:52 IMPRESSION: Posterior soft tissue swelling copyright 2010 [employer]- All Rights Reserved Knee X-Ray 09/21/19 20:52 IMPRESSION: Diffuse soft tissue swelling without underlying acute osseous anomaly. If there is continued concern for soft tissue gas, consider CT. copyright 2010 [employer]- All Rights Reserved Extremity Ultrasound 09/21/19 23:18 IMPRESSION: No sonographic evidence for abscess copyright 2010 [employer]- All Rights Reserved Assessment and Plan - Diagnosis (1) Cellulitis Qualifiers: Site of cellulitis: extremity Site of cellulitis of extremity: lower extrem ity Laterality: right Qualified Code(s): L03.115 - Cellulitis of right lower limb Is this a current diagnosis for this admission?: Yes Plan: No significant improvement. Patient having worsening of right distal knee medial aspect swelling, erythema and fluctuance with necrotic tissue. Improving. WBC WNL. Afebrile. Blood cultures no growth so far. Left lower extremity ultrasound negative for any abscess or gas pockets. 09/22/2019. Left lower extremity ultrasound. Left lower extremity ultrasound no sonographic evidence for abscess. 09/21/2019. Left knee x-ray. Diffuse soft tissue swelling without underlying osseous abnormality. 09/21/2019. CXR. Patchy right basilar airspace disease with mild to moderate right effusion suspicious for pneumonia and parapneumonic effusion. 09/21/2019. Right elbow x-ray. Posterior soft tissue swelling. Due 3 IV antibiotics. Day 3 IV vancomycin. Day 3 IV Zosyn. Patient agreeable to explore surgical intervention. Reconsulted surgery. Continue empiric IV antibiotics. Follow-up blood cultures. (2) IV drug abuse Is this a current diagnosis for this admission?: Yes Plan: Supportive care, opiate PRN withdrawal, consider 2D echo (if not done at [place]) for evaluation of endocarditis or embolic source of pneumonia. (3) Smoker Is this a current diagnosis for this admission?: Yes Plan: Counseled on quitting. NicoDerm patch provided. (4) Pneumonia Qualifiers: Pneumonia type: due to unspecified organism Laterality: right Lung location: lower lobe of lung Qualified Code(s): J18.9 - Pneumonia, unspecified organism Is this a current diagnosis for this admission?: Yes Plan: Likely polymicrobial or cardioembolic given history of story of drug abuse, necrotizing fasciitis Pending records from [facility] pending. 09/21/2019. CXR. Patchy right basilar airspace disease with mild to moderate right effusion suspicious for pneumonia and parapneumonic effusion. Continue empiric IV antibiotics. We will obtain 2D echo to rule out any endocarditis/embolic source of pneumonia. Cultures negative so far.
[2019-09-24 14:18] LABS: VANCOMYCIN,TROUGH 10.8 ug/mL (5.0-20.0)
[2019-09-24] MEDS: OXYCODONE-ACETAMINOPHEN 5-325 MG TABLET PO PRN (15:06)
[2019-09-24] MEDS ORDERED: LIDOCAINE 0.5% INJ-PF (5 MG/ML) 50 ML SDV ONE (16:07)
[2019-09-24] MEDS: VANCOMYCIN HCL 1,250 MG in DEXTROSE 5%-WATER 250 ML IV SCH ×2 (16:54→22:07)
[2019-09-24] MEDS ORDERED: MEPERIDINE HCL/PF INJ 25 MG/1 ML DISP.SYRIN IV PRN (16:57)
[2019-09-24] MEDS ORDERED: PROMETHAZINE HCL INJ 25 MG/1 ML VIAL IV PRN (16:57)
[2019-09-24] MEDS ORDERED: MORPHINE SULFATE 10 MG/ML INJ IV PRN (16:57)
[2019-09-24] MEDS ORDERED: FENTANYL CITRATE INJ/PF 100 MCG/2 ML AMPUL IV PRN ×3 (16:57)
[2019-09-24] MEDS ORDERED: DIPHENHYDRAMINE HCL 50 MG/ML VIAL IV PRN (16:57)
[2019-09-24] MEDS ORDERED: MIDAZOLAM 2 MG/2 ML INJ ONE (17:01)
[2019-09-24] MEDS ORDERED: FENTANYL CITRATE INJ/PF 100 MCG/2 ML AMPUL ONE (17:01)
[2019-09-24] MEDS ORDERED: ONDANSETRON HCL INJ/PF 4 MG/2 ML SDV ONE (17:01)
[2019-09-24] MEDS ORDERED: PROPOFOL INJ 200 MG/20 ML VIAL IV ONE (17:01)
[2019-09-24] MEDS ORDERED: DEXMEDETOMIDINE INJ 80 MCG/20 ML VIAL IV ONE (17:01)
--- NOTE | 2019-09-24 17:47 | PDOC PROGRESS REPORT ---
Subjective Progress Note for:: 09/24/19 Subjective:: Pains left knee area Reason For Visit: PNA CELLULITIS, IVDU Physical Exam Vital Signs: Temp Pulse Resp BP Pulse Ox 97.5 F 65 22 H 118/75 98 09/24/19 15:29 09/24/19 15:29 09/24/19 15:29 09/24/19 15:29 09/24/19 15:29 Intake & Output 09/23/19 09/24/19 09/25/19 06:59 06:59 06:59 Intake Total 2580 1835 590 Balance 2580 1835 590 Weight 61.4 kg 62.3 kg Exam: Has an area of fluctuation on the left knee arron-lateral area. There is still an area of reddish discoloration around the knee area about 4-5 cm. in diameter. She claims she injected this area a few days before Results Laboratory Results: 09/24/19 05:22 09/24/19 05:22 09/24/19 09/24/19 05:22 05:22 WBC 9.1 RBC 3.58 L Hgb 9.8 L Hct 29.2 L MCV 81 MCH 27.2 MCHC 33.5 RDW 16.6 H Plt Count 315 Seg Neutrophils % Not Reportable Sodium 140.7 Potassium 4.1 Chloride 106 Carbon Dioxide 23 Anion Gap 12 BUN 13 Creatinine 0.58 Est GFR ( Amer) > 60 Glucose 72 L Calcium 9.0 Total Bilirubin 0.5 AST 22 Alkaline Phosphatase 132 H Total Protein 7.3 Albumin 3.0 L 09/21/19 09/21/19 16:14 16:14 Creatine Kinase < 20 L Troponin I < 0.012 Impressions: Chest X-Ray 09/21/19 15:19 IMPRESSION: Patchy right basilar airspace disease with mild to moderate right effusion suspicious for pneumonia and parapneumonic effusion. Elbow X-Ray 09/21/19 20:52 IMPRESSION: Posterior soft tissue swelling copyright 2010 [email or web address]- All Rights Reserved Knee X-Ray 09/21/19 20:52 IMPRESSION: Diffuse soft tissue swelling without underlying acute osseous anomaly. If there is continued concern for soft tissue gas, consider CT. copyright 2011 [email or web address]- All Rights Reserved Extremity Ultrasound 09/21/19 23:18 IMPRESSION: No sonographic evidence for abscess copyright 2010 [email or web address]- All Rights Reserved Assessment & Plan - Diagnosis (1) Abscess of left lower extremity Is this a current diagnosis for this admission?: Yes (2) IV drug abuse Is this a current diagnosis for this admission?: Yes (3) Smoker Is this a current diagnosis for this admission?: Yes - Time Time Spent with patient: 15-24 minutes - Inpatient Certification Medical Necessity: Need for IV Antibiotics, Need for Surgery - Plan Summary Plan Summary: Patient about to be taken to the OR but claims she ate a bowl of oatmeal. Since she is requiring general anesthesia, Anesthesiologist claims better to reschedule her for tomorrow and make sure she is strictly NPO from midnight.
[2019-09-24] MEDS ORDERED: GLUCAGON,HUMAN RECOMB 1 MG INJ SUBCUT PRN (17:49)
[2019-09-24] MEDS ORDERED: DEXTROSE 40% GEL 15 GM TUBE PO PRN ×2 (17:49)
[2019-09-24] MEDS ORDERED: DEXTROSE 50%-WATER 25 GM/50 ML DISP.SYRIN IV PRN ×2 (17:49)
[2019-09-24] MEDS: KETOROLAC TROMETHAMINE INJ/PF 30 MG/1 ML SDV IV PRN (21:57)
[2019-09-25] MEDS: IPRATROPIUM/ALBUTEROL 0.5-2.5 MG/3 ML AMPUL NEB SCH ×4 (00:21→23:49)
[2019-09-25] MEDS: PIPERACILLIN SODIUM/TAZOBACTAM 4.5 GM in NORMAL SALINE 100 ML IV SCH ×4 (02:40→21:20)
[2019-09-25] MEDS: VANCOMYCIN HCL 1,250 MG in DEXTROSE 5%-WATER 250 ML IV SCH ×3 (05:14→21:25)
[2019-09-25] MEDS: HEPARIN SOD (PORCINE) 5,000 UNIT/ML 1 ML VIAL SUBCUT SCH ×3 (05:14→21:30)
[2019-09-25] MEDS: KETOROLAC TROMETHAMINE INJ/PF 30 MG/1 ML SDV IV PRN (08:06)
[2019-09-25 08:11] LABS: HEMATOCRIT 27.5 % (36.0-47.0); HEMOGLOBIN 9.4 g/dL (12.0-15.5); MEAN CORPUSCULAR HEMOGLOBIN 27.2 pg (27.0-33.4); MEAN CORPUSCULAR VOLUME 80 fl (80-97); PLATELET COUNT 339 10^3/uL (150-450); RED BLOOD COUNT 3.43 10^6/uL (3.72-5.28); RED CELL DISTRIBUTION WIDTH 16.2 % (11.5-14.0); WHITE BLOOD COUNT 7.9 10^3/uL (4.0-10.5)
[2019-09-25 08:31] LABS: ALBUMIN 2.6 g/dL (3.5-5.0); ALKALINE PHOSPHATASE 106 U/L (38-126); ANION GAP 9 (5-19); ASPARTATE AMINO TRANSFERASE 15 U/L (14-36); BILIRUBIN,DIRECT 0.1 mg/dL (0.0-0.4); BILIRUBIN,TOTAL 0.3 mg/dL (0.2-1.3); BLOOD UREA NITROGEN 12 mg/dL (7-20); CALCIUM 8.3 mg/dL (8.4-10.2); CARBON DIOXIDE 27 mmol/L (22-30); CHLORIDE 103 mmol/L (98-107); GLUCOSE 100 mg/dL (75-110); TOTAL PROTEIN 6.6 g/dL (6.3-8.2)
[2019-09-25] MEDS ORDERED: PROPOFOL INJ 200 MG/20 ML VIAL IV ONE (09:01)
[2019-09-25] MEDS ORDERED: MIDAZOLAM 2 MG/2 ML INJ ONE (09:01)
[2019-09-25] MEDS ORDERED: ONDANSETRON HCL INJ/PF 4 MG/2 ML SDV ONE (09:01)
[2019-09-25] MEDS ORDERED: FENTANYL CITRATE INJ/PF 100 MCG/2 ML AMPUL ONE ×2 (09:01→10:03)
[2019-09-25] MEDS ORDERED: KETOROLAC TROMETHAMINE 60 MG/2 ML SDV ONE (09:02)
[2019-09-25] MEDS: DOCUSATE SODIUM 100 MG CAPSULE PO SCH ×2 (09:12→17:09)
[2019-09-25] MEDS ORDERED: LIDOCAINE 0.5% INJ-PF (5 MG/ML) 50 ML SDV ONE (09:18)
[2019-09-25 09:24] LABS: ABSOLUTE LYMPHOCYTES# (MANUAL) 2.7 10^3/uL (0.5-4.7); ABSOLUTE MONOCYTES # (MANUAL) 0.1 10^3/uL (0.1-1.4); BASOPHILS % (MANUAL) 0 % (0-2); EOSINOPHILS % (MANUAL) 2 % (0-6); LYMPHOCYTES % (MANUAL) 30 % (13-45); MONOCYTES % (MANUAL) 1 % (3-13); SEGMENTED NEUTROPHILS % (MAN) 63 % (42-78); TOTAL CELLS COUNTED 100
[2019-09-25 09:25] LABS: ANISOCYTOSIS 1+; PLATELET COMMENT ADEQUATE
[2019-09-25] MEDS ORDERED: MORPHINE SULFATE 10 MG/ML INJ IV PRN (09:57)
[2019-09-25] MEDS ORDERED: DIPHENHYDRAMINE HCL 50 MG/ML VIAL IV PRN (09:57)
[2019-09-25] MEDS ORDERED: MEPERIDINE HCL/PF INJ 25 MG/1 ML DISP.SYRIN IV PRN (09:57)
[2019-09-25] MEDS ORDERED: ONDANSETRON HCL INJ/PF 4 MG/2 ML SDV IV PRN (09:57)
[2019-09-25] MEDS ORDERED: FENTANYL CITRATE INJ/PF 100 MCG/2 ML AMPUL IV PRN ×3 (09:57)
[2019-09-25] MEDS ORDERED: PROMETHAZINE HCL INJ 25 MG/1 ML VIAL IV PRN ×2 (09:57)
[2019-09-25] MEDS ORDERED: OXYCODONE-ACETAMINOPHEN 5-325 MG TABLET PO PRN ×2 (09:57)
[2019-09-25] MEDS: HYDROMORPHONE HCL INJ/PF 2 MG/ML AMPULE ONE ×2 (10:16→10:36)
[2019-09-25] MEDS: FENTANYL CITRATE INJ/PF 100 MCG/2 ML AMPUL ONE ×2 (10:22→10:27)
--- NOTE | 2019-09-25 10:25 | Operative Report ---
Operative Report DATE OF SURGERY: 09/25/19 PREOPERATIVE DIAGNOSIS: Abscess left knee area POSTOPERATIVE DIAGNOSIS: Same OPERATION: Incision and drainage abscess left knee area SURGEON: SHELLY HUA ANESTHESIA: GA TISSUE REMOVED OR ALTERED: Pus COMPLICATIONS: None ESTIMATED BLOOD LOSS: 10 cc QUANTITATIVE BLOOD LOSS: 10 INTRAOPERATIVE FINDINGS: Abscess left knee PROCEDURE: Patient was placed in the supine position and after adequate general anesthesia the left knee was then prepped and draped in the usual sterile fashion in a semi-flex position under a pillow. Appropriate timeout was then called. A transverse incision made at the mid part of the bruised area about 2 cm long. Small amount of purulent material extruded out and specimen for C&S obtained. The area was subsequently probed and also digitally probe and appears to be going towards the medial aspect and some just superior to the initial incision. Counterincision made around the the distal proximal and to about 2 cm. More purulent material was irrigated out. This is irrigated until return backflow was clear. Some hemostasis obtained and the skin incision sites with the use of cautery. The cavity with appears to be above the fascia was then packed with half-inch iodoform gauze about 20 inches long. It was then dressed with 4 x 4 ABD and Kerlix. Patient tolerated procedure well. Needle instrument sponge count were all correct. About 20 cc of half percent lidocaine was injected into the 2 incision sites prior to dressing placement. Patient was brought to the recovery room satisfactory condition extubated.
[2019-09-25] MEDS: KETOROLAC TROMETHAMINE INJ/PF 30 MG/1 ML SDV IV SCH ×3 (11:35→23:30)
[2019-09-25] MEDS: MORPHINE SULFATE 10 MG/ML INJ IV PRN ×3 (12:29→21:19)
--- NOTE | 2019-09-25 12:40 | PDOC PROGRESS REPORT ---
Subjective Progress Note for:: 09/25/19 Subjective:: HEAVENLY DISLA is a 29 year old female with a past medical history of heroin dependence, IV drug use, MRSA cellulitis, necrotizing fasciitis and recent pneumonia diagnosed at [facility] from which she left [place]. She presents with right arm erythema, left thigh erythema and blistering, shortness of breath with nonproductive cough. She is found to have leukocytosis, anemia and hypokalemia. She complains of 4 days of erythema to the right forearm after attempting IV drug use, 1 week of erythema to the left thigh after attempting IV drug use and 1 week of cough and subjective fever. Ultrasound is negative for fluid collection, surgery is consulted for thigh with blistering and history of necrotizing fasciitis. She receives IV antibiotics and referred to the hospitalist for admission. 09/23/2019. No acute events overnight. Patient still complaining of left lower extremity erythema and pain, denies having any discharge, denies any fever, chills, nausea, vomiting, diarrhea, constipation or any urinary symptoms. P.o. tolerant and having normal bowel and bladder movements. 09/24/2019. No acute events overnight. Patient still complaining of left lower extremity pain, denies any fever, chills, nausea, vomiting, diarrhea, constipation or any urinary symptoms. Patient is willing to undergo surgery. 09/25/2019. Patient is status post left lower extremity debridement complaining of severe pain in the left lower extremity. Denies any fever, chills, nausea, vomiting, diarrhea, constipation or any urinary symptoms. 09/26/2019. No acute events overnight. Still complaining of left lower extremity pain improving compared to yesterday. Reason For Visit: PNA CELLULITIS, IVDU Physical Exam Vital Signs: Temp Pulse Resp BP Pulse Ox 97.3 F 73 20 139/87 H 97 09/25/19 11:15 09/25/19 11:15 09/25/19 11:15 09/25/19 11:15 09/25/19 11:15 Intake & Output 09/24/19 09/25/19 09/26/19 06:59 06:59 06:59 Intake Total 1835 1772 950 Output Total 20 Balance 1835 1772 930 Weight 62.3 kg 61.3 kg General appearance: PRESENT: no acute distress, well-developed, well-nourished Head exam: PRESENT: atraumatic, normocephalic Respiratory exam: PRESENT: clear to auscultation neda. ABSENT: rales, rhonchi, wheezes Cardiovascular exam: PRESENT: RRR. ABSENT: diastolic murmur, rubs, systolic murmur Extremities exam: PRESENT: other - She is just back from or, left knee covered in dressing. Neurological exam: PRESENT: alert, awake, oriented to person, oriented to place, oriented to time, oriented to situation, CN II-XII grossly intact. ABSENT: motor sensory deficit Results Laboratory Results: 09/25/19 07:56 09/25/19 07:56 09/25/19 09/25/19 07:56 07:56 WBC 7.9 RBC 3.43 L Hgb 9.4 L Hct 27.5 L MCV 80 MCH 27.2 MCHC 34.0 RDW 16.2 H Plt Count 339 Seg Neutrophils % Not Reportable Sodium 139.0 Potassium 4.0 Chloride 103 Carbon Dioxide 27 Anion Gap 9 BUN 12 Creatinine 0.61 Est GFR ( Amer) > 60 Glucose 100 Calcium 8.3 L Magnesium 2.1 Total Bilirubin 0.3 AST 15 Alkaline Phosphatase 106 Total Protein 6.6 Albumin 2.6 L 09/21/19 09/21/19 16:14 16:14 Creatine Kinase < 20 L Troponin I < 0.012 Impressions: Chest X-Ray 09/21/19 15:19 IMPRESSION: Patchy right basilar airspace disease with mild to moderate right effusion suspicious for pneumonia and parapneumonic effusion. Elbow X-Ray 09/21/19 20:52 IMPRESSION: Posterior soft tissue swelling copyright 2010 [employer]- All Rights Reserved Knee X-Ray 09/21/19 20:52 IMPRESSION: Diffuse soft tissue swelling without underlying acute osseous anomaly. If there is continued concern for soft tissue gas, consider CT. copyright 2011 [employer]- All Rights Reserved Extremity Ultrasound 09/21/19 23:18 IMPRESSION: No sonographic evidence for abscess copyright 2010 [employer]- All Rights Reserved Assessment and Plan - Diagnosis (1) Cellulitis Qualifiers: Site of cellulitis: extremity Site of cellulitis of extremity: lower extremity Laterality: right Qualified Code(s): L03.115 - Cellulitis of right lower limb Is this a current diagnosis for this admission?: Yes Plan: Day 1 status post left knee I&D. Improving. WBC WNL. Afebrile. Blood cultures no growth so far. Left lower extremity ultrasound negative for any abscess or gas pockets. 09/22/2019. Left lower extremity ultrasound. Left lower extremity ultrasound no sonographic evidence for abscess. 09/21/2019. Left knee x-ray. Diffuse soft tissue swelling without underlying osseous abnormality. 09/21/2019. CXR. Patchy right basilar airspace disease with mild to moderate right effusion suspicious for pneumonia and parapneumonic effusion. 09/21/2019. Right elbow x-ray. Posterior soft tissue swelling. Due 4 IV antibiotics. Day 4 IV vancomycin. Day 4 IV Zosyn. Patient agreeable to explore surgical intervention. Reconsulted surgery. Continue empiric IV antibiotics. Follow-up blood cultures. (2) IV drug abuse Is this a current diagnosis for this admission?: Yes Plan: Supportive care, opiate PRN withdrawal, consider 2D echo (if not done at [place]) for evaluation of endocarditis or embolic source of pneumonia. (3) Smoker Is this a current diagnosis for this admission?: Yes Plan: Counseled on quitting. NicoDerm patch provided. (4) Pneumonia Qualifiers: Pneumonia type: due to unspecified organism Laterality: right Lung location: lower lobe of lung Qualified Code(s): J18.9 - Pneumonia, unspecified organism Is this a current diagnosis for this admission?: Yes Plan: Likely polymicrobial or cardioembolic given history of story of drug abuse, necrotizing fasciitis Pending records from [facility] pending. 09/21/2019. CXR. Patchy right basilar airspace disease with mild to moderate right effusion suspicious for pneumonia and parapneumonic effusion. Continue empiric IV antibiotics. Pending 2D echo to rule out any endocarditis/embolic source of pneumonia. Cultures negative so far.
[2019-09-25] MEDS: OXYCODONE-ACETAMINOPHEN 5-325 MG TABLET PO PRN ×2 (14:18→20:47)
--- NOTE | 2019-09-25 17:41 | XCELERA REPORT ---
[address] [address] Transthoracic Echocardiogram Report Name: HEAVENLY DISLA Age: 29 yrs Gender: Female : 1990 Patient Status: Inpatient Patient Location: [address] [place] [address] Study Date: 09/25/2019 03:08 PM Height: 65 in Weight: 137 lb BSA: 1.7 m2 Procedure: A complete two-dimensional transthoracic echocardiogram was performed (2D, M-mode, spectral and color flow Doppler). The study was technically adequate with some images being suboptimal in quality. Reason For Study: r/o endocarditis Ordering Physician: NIMCO ESCAMILLA Performed By: Rossy Wilkinson Interpretation Summary The left ventricular ejection fraction is normal. There is borderline concentric left ventricular hypertrophy. The left ventricle is grossly normal size. Doppler measurements suggest impaired left ventricular relaxation, which is associated with grade I/IV or mild diastolic dysfunction Wall motion cannot be accurately commented on, but no definite regional wall motion abnormalities noted. The right ventricular systolic function is normal. The left atrium is borderline dilated. The right atrium is normal in size There is a mild amount of mitral regurgitation There is no mitral valve stenosis. No aortic regurgitation is present. There is no aortic valve stenosis There is a mild amount of tricuspid regurgitation There is mild pulmonary hypertension by echo Best estimated RVSP is approximately 35-40 mm/Hg. There is a mild amount of pulmonic regurgitation Small right pleural effusion. No definite vegetations noted but if clinical suspicion is high, then consider HOLLY and multiple blood cultures. MMode/2D Measurements & Calculations RVDd: 3.0 cm LVIDd: 4.9 cm FS: 35.5 % Ao root diam: 2.2 cm IVSd: 0.87 cm LVIDs: 3.2 cm EDV(Teich): 114.8 ml Ao root area: 3.9 cm2 LVPWd: 0.92 cm ESV(Teich): 40.5 ml LA dimension: 4.0 cm EF(Teich): 64.7 % Doppler Measurements & Calculations MV E max bill: MV P1/2t max bill: Ao V2 max: LV V1 max P.2 cm/sec 98.7 cm/sec 159.8 cm/sec 7.7 mmHg MV A max bill: MV P1/2t: 62.5 msec Ao max PG: LV V1 max: 48.4 cm/sec MVA(P1/2t): 3.5 cm2 10.2 mmHg 138.7 cm/sec MV E/A: 2.1 MV dec slope: 462.6 cm/sec2 MV dec time: 0.22 sec PA V2 max: PI end-d bill: TR max bill: MV P1/2t-pr_phl: 106.6 cm/sec 93.9 cm/sec 272.6 cm/sec 62.5 msec PA max PG: TR max P.5 mmHg 29.7 mmHg Left Ventricle The left ventricle is grossly normal size. There is borderline concentric left ventricular hypertrophy. The left ventricular ejection fraction is normal. Doppler measurements suggest impaired left ventricular relaxation, which is associated with grade I/IV or mild diastolic dysfunction. Wall motion cannot be accurately commented on, but no definite regional wall motion abnormalities noted. Right Ventricle The right ventricle is grossly normal size. There is normal right ventricular wall thickness. The right ventricular systolic function is normal. Atria The right atrium is normal in size. The left atrium is borderline dilated. Interarterial septum not well visualized and not well dopplered. Cannot comment on ASD/PFO presence. Mitral Valve The mitral valve is grossly normal. There is no mitral valve stenosis. There is a mild amount of mitral regurgitation. Aortic Valve The aortic valve is grossly normal. There is no aortic valve stenosis. No aortic regurgitation is present. Tricuspid Valve The tricuspid valve is not well visualized, but is grossly normal. There is no tricuspid stenosis. There is a mild amount of tricuspid regurgitation. There is mild pulmonary hypertension by echo. Best estimated RVSP is approximately 35-40 mm/Hg. Pulmonic Valve The pulmonic valve is not well visualized. There is a mild amount of pulmonic regurgitation. Great Vessels The aortic root is not well visualized but is probably normal size. The inferior vena cava appeared normal and decreased > 50% with respiration (RAP 5-10 mmHg). Effusions Minimal pericardial effusion. Small right pleural effusion. Incidental Findings No definite vegetations noted but if clinical suspicion is high, then consider HOLLY and multiple blood cultures. : NIMCO ESCAMILLA Shyamal
[2019-09-25] MEDS: NORMAL SALINE 1000 ML 1,000 ML IV PRN (21:20)
[2019-09-25 22:14] LABS: VANCOMYCIN,TROUGH 19.6 ug/mL (5.0-20.0)
[2019-09-26] MEDS: MELATONIN 3 MG TABLET PO PRN (00:04)
[2019-09-26] MEDS: OXYCODONE-ACETAMINOPHEN 5-325 MG TABLET PO PRN ×4 (00:32→22:29)
[2019-09-26] MEDS: PIPERACILLIN SODIUM/TAZOBACTAM 4.5 GM in NORMAL SALINE 100 ML IV SCH ×4 (04:02→21:13)
[2019-09-26] MEDS: MORPHINE SULFATE 10 MG/ML INJ IV PRN ×5 (04:05→23:27)
[2019-09-26] MEDS: HEPARIN SOD (PORCINE) 5,000 UNIT/ML 1 ML VIAL SUBCUT SCH ×3 (05:44→21:07)
[2019-09-26] MEDS: VANCOMYCIN HCL 1,250 MG in DEXTROSE 5%-WATER 250 ML IV SCH ×3 (05:45→21:13)
[2019-09-26] MEDS: KETOROLAC TROMETHAMINE INJ/PF 30 MG/1 ML SDV IV SCH ×4 (05:45→23:26)
[2019-09-26 06:58] LABS: ABSOLUTE EOSINOPHILS # (AUTO) 0.2 10^3/uL (0.0-0.6); ABSOLUTE LYMPHOCYTES (AUTO) 2.1 10^3/uL (0.5-4.7); ABSOLUTE MONOCYTES (AUTO) 0.5 10^3/uL (0.1-1.4); ABSOLUTE NEUT (AUTO) 3.9 10^3/uL (1.7-8.2); BASOPHILS % (AUTO) 0.5 % (0-2); EOSINOPHILS % (AUTO) 2.8 % (0-6); HEMATOCRIT 24.3 % (36.0-47.0); HEMOGLOBIN 8.2 g/dL (12.0-15.5); LYMPHOCYTES % (AUTO) 31.1 % (13-45); MEAN CORPUSCULAR HEMOGLOBIN 27.6 pg (27.0-33.4); MEAN CORPUSCULAR HGB CONC 33.9 g/dL (32.0-36.0); MEAN CORPUSCULAR VOLUME 81 fl (80-97); MONOCYTES % (AUTO) 7.3 % (3-13); PLATELET COUNT 322 10^3/uL (150-450); RED BLOOD COUNT 2.99 10^6/uL (3.72-5.28); RED CELL DISTRIBUTION WIDTH 16.3 % (11.5-14.0); SEGMENTED NEUTROPHILS % (AUTO) 58.3 % (42-78); TOTAL CELLS COUNTED % (AUTO) 100 %; WHITE BLOOD COUNT 6.7 10^3/uL (4.0-10.5)
[2019-09-26 07:25] LABS: ANION GAP 11 (5-19); BLOOD UREA NITROGEN 12 mg/dL (7-20); CALCIUM 8.2 mg/dL (8.4-10.2); CARBON DIOXIDE 27 mmol/L (22-30); CHLORIDE 104 mmol/L (98-107); GLUCOSE 111 mg/dL (75-110)
[2019-09-26] MEDS: IPRATROPIUM/ALBUTEROL 0.5-2.5 MG/3 ML AMPUL NEB SCH ×2 (08:56→16:42)
[2019-09-26] MEDS: DOCUSATE SODIUM 100 MG CAPSULE PO SCH ×2 (10:10→17:41)
--- NOTE | 2019-09-26 11:42 | RADIOLOGY REPORT (SQ) ---
EXAM DESCRIPTION: CHEST 2 VIEWS COMPLETED DATE/TIME: 09/26/2019 10:58 am REASON FOR STUDY: pleural effusion and patchy infiltrates follow up COMPARISON: 09/21/2019. TECHNIQUE: Frontal and lateral radiographic views of the chest acquired. NUMBER OF VIEWS: Two view. LIMITATIONS: None. FINDINGS: LUNGS AND PLEURA: Small-moderate right pleural fluid collection. This may be minimally pr ogressive (versus differences in technique). Trace left pleural fluid also noted. No pneumothorax. MEDIASTINUM AND HILAR STRUCTURES: No masses or contour abnormalities. HEART AND VASCULAR STRUCTURES: Heart normal size. No evidence for failure. BONES: No acute findings. HARDWARE: None in the chest. OTHER: No other significant finding. IMPRESSION: Pleural effusions as above, right greater than left. Right collection may be minimally progressive. TECHNICAL DOCUMENTATION: JOB ID: [id number] [employer]- All Rights Reserved Reading location - IP/workstation name: [email or web address]
--- NOTE | 2019-09-26 15:59 | PDOC PROGRESS REPORT ---
Subjective Progress Note for:: 09/26/19 Subjective:: Patient states leg feels better after debridement Reason For Visit: PNA CELLULITIS, IVDU Physical Exam Vital Signs: Temp Pulse Resp BP Pulse Ox 98.1 F 68 15 118/62 95 09/26/19 12:21 09/26/19 12:21 09/26/19 12:21 09/26/19 12:21 09/26/19 12:21 Intake & Output 09/25/19 09/26/19 09/27/19 06:59 06:59 06:59 Intake Total 1772 2776 935 Output Total 20 Balance 1772 2756 935 Weight 61.3 kg General appearance: PRESENT: no acute distress Extremities exam: PRESENT: other - Dressing wrapped, dry and intact. Results Laboratory Results: 09/26/19 06:21 09/26/19 06:21 09/26/19 09/26/19 06:21 06:21 WBC 6.7 RBC 2.99 L Hgb 8.2 L Hct 24.3 L MCV 81 MCH 27.6 MCHC 33.9 RDW 16.3 H Plt Count 322 Seg Neutrophils % 58.3 Sodium 141.5 Potassium 4.0 Chloride 104 Carbon Dioxide 27 Anion Gap 11 BUN 12 Creatinine 0.62 Est GFR ( Amer) > 60 Glucose 111 H Calcium 8.2 L 09/21/19 09/21/19 16:14 16:14 Creatine Kinase < 20 L Troponin I < 0.012 Impressions: Elbow X-Ray 09/21/19 20:52 IMPRESSION: Posterior soft tissue swelling copyright 2010 [employer]- All Rights Reserved Knee X-Ray 09/21/19 20:52 IMPRESSION: Diffuse soft tissue swelling without underlying acute osseous anomaly. If there is continued concern for soft tissue gas, consider CT. copyright 2010 [employer]- All Rights Reserved Extremity Ultrasound 09/21/19 23:18 IMPRESSION: No sonographic evidence for abscess copyright 2010 [employer]- All Rights Reserved Chest X-Ray 09/26/19 00:00 IMPRESSION: Pleural effusions as above, right greater than left. Right collection may be minimally progressive. Assessment & Plan - Diagnosis (1) Cellulitis Qualifiers: Site of cellulitis: extremity Site of cellulitis of extremity: lower extremity Laterality: right Qualified Code(s): L03.115 - Cellulitis of right lower limb Is this a current diagnosis for this admission?: Yes Plan: Impression: Patient is 1 day status post debridement left leg with a multiple incisions, packing, feeling better. Recommendations: 1. Continue intravenous antibiotics 2. Patient undergo dressing changes tomorrow 3. Possible discharge over the next 24 to 48 hours pending condition of soft tissue (2) IV drug abuse Is this a current diagnosis for this admission?: Yes (3) Pneumonia Qualifiers: Pneumonia type: due to unspecified organism Laterality: right Lung location: lower lobe of lung Qualified Code(s): J18.9 - Pneumonia, unspecified organism Is this a current diagnosis for this admission?: Yes (4) Smoker Is this a current diagnosis for this admission?: Yes - Time Time Spent with patient: Less than 15 minutes
[2019-09-27] MEDS: IPRATROPIUM/ALBUTEROL 0.5-2.5 MG/3 ML AMPUL NEB SCH ×2 (01:24→08:48)
[2019-09-27] MEDS: PIPERACILLIN SODIUM/TAZOBACTAM 4.5 GM in NORMAL SALINE 100 ML IV SCH ×4 (04:06→21:27)
[2019-09-27] MEDS: MORPHINE SULFATE 10 MG/ML INJ IV PRN ×5 (04:08→21:27)
[2019-09-27] MEDS: HEPARIN SOD (PORCINE) 5,000 UNIT/ML 1 ML VIAL SUBCUT SCH ×3 (05:03→21:18)
[2019-09-27] MEDS: KETOROLAC TROMETHAMINE INJ/PF 30 MG/1 ML SDV IV SCH ×4 (05:27→23:00)
[2019-09-27] MEDS: VANCOMYCIN HCL 1,250 MG in DEXTROSE 5%-WATER 250 ML IV SCH ×3 (05:28→21:27)
[2019-09-27] MEDS: OXYCODONE-ACETAMINOPHEN 5-325 MG TABLET PO PRN ×2 (09:25→19:39)
[2019-09-27] MEDS: DOCUSATE SODIUM 100 MG CAPSULE PO SCH ×2 (09:45→18:01)
--- NOTE | 2019-09-27 12:59 | PDOC PROGRESS REPORT ---
Subjective Progress Note for:: 09/27/19 Subjective:: HEAVENLY DISLA is a 29 year old female with a past medical history of heroin dependence, IV drug use, MRSA cellulitis, necrotizing fasciitis and recent pneumonia diagnosed at [facility] from which she left [place]. She presents with right arm erythema, left thigh erythema and blistering, shortness of breath with nonproductive cough. She is found to have leukocytosis, anemia and hypokalemia. She complains of 4 days of erythema to the right forearm after attempting IV drug use, 1 week of erythema to the left thigh after attempting IV drug use and 1 week of cough and subjective fever. Ultrasound is negative for fluid collection, surgery is consulted for thigh with blistering and history of necrotizing fasciitis. She receives IV antibiotics and referred to the hospitalist for admission. 09/23/2019. No acute events overnight. Patient still complaining of left lower extremity erythema and pain, denies having any discharge, denies any fever, chills, nausea, vomiting, diarrhea, constipation or any urinary symptoms. P.o. tolerant and having normal bowel and bladder movements. 09/24/2019. No acute events overnight. Patient still complaining of left lower extremity pain, denies any fever, chills, nausea, vomiting, diarrhea, constipation or any urinary symptoms. Patient is willing to undergo surgery. 09/25/2019. Patient is status post left lower extremity debridement complaining of severe pain in the left lower extremity. Denies any fever, chills, nausea, vomiting, diarrhea, constipation or any urinary symptoms. 09/26/2019. No acute events overnight. Still complaining of left lower extremity pain improving compared to yesterday. 09/27/2019. No acute events overnight. Reporting moderate improvement of left lower extremity pain. Denies any fever, chills, nausea, vomiting, diarrhea, constipation or any urinary symptoms. Reason For Visit: PNA CELLULITIS, IVDU Physical Exam Vital Signs: Temp Pulse Resp BP Pulse Ox 98.1 F 70 17 131/59 H 96 09/27/19 08:17 09/27/19 08:17 09/27/19 08:17 09/27/19 08:17 09/27/19 08:17 Intake & Output 09/26/19 09/27/19 09/28/19 06:59 06:59 06:59 Intake Total 2776 2555 350 Output Total 20 Balance 0306 2555 350 General appearance: PRESENT: no acute distress, well-developed, well-nourished Head exam: PRESENT: atraumatic, normocephalic Respiratory exam: PRESENT: clear to auscultation neda. ABSENT: rales, rhonchi, wheezes Cardiovascular exam: PRESENT: RRR. ABSENT: diastolic murmur, rubs, systolic murmur GI/Abdominal exam: PRESENT: normal bowel sounds, soft. ABSENT: distended, guarding, mass, organolmegaly, rebound, tenderness Musculoskeletal exam: PRESENT: tenderness, other - Left knee status post I&D, wound looks clean, no active discharge. Neurovascularly intact. Results Laboratory Results: 09/26/19 06:21 09/26/19 06:21 09/25/19 09:50 Knee - Abscess Gram Stain - Final 09/25/19 09:47 Knee - Abscess Gram Stain - Final 09/21/19 21:23 Blood Blood Culture - Final NO GROWTH IN 5 DAYS 09/21/19 17:15 Blood Blood Culture - Final NO GROWTH IN 5 DAYS 09/21/19 09/21/19 16:14 16:14 Creatine Kinase < 20 L Troponin I < 0.012 Impressions: Elbow X-Ray 09/21/19 20:52 IMPRESSION: Posterior soft tissue swelling copyright 2010 [employer]- All Rights Reserved Knee X-Ray 09/21/19 20:52 IMPRESSION: Diffuse soft tissue swelling without underlying acute osseous anomaly. If there is continued concern for soft tissue gas, consider CT. copyright 2011 [employer]- All Rights Reserved Extremity Ultrasound 09/21/19 23:18 IMPRESSION: No sonographic evidence for abscess copyright 2010 [employer]- All Rights Reserved Chest X-Ray 09/26/19 00:00 IMPRESSION: Pleural effusions as above, right greater than left. Right collection may be minimally progressive. Assessment and Plan - Diagnosis (1) Cellulitis Qualifiers: Site of cellulitis: extremity Site of cellulitis of extremity: lower extremity Laterality: right Qualified Code(s): L03.115 - Cellulitis of right lower limb Is this a current diagnosis for this admission?: Yes Plan: Day 2 status post left knee I&D. Improving. WBC WNL. Afebrile. Blood cultures no growth so far. Left lower extremity ultrasound negative for any abscess or gas pockets. 09/22/2019. Left lower extremity ultrasound. Left lower extremity ultrasound no sonographic evidence for abscess. 09/21/2019. Left knee x-ray. Diffuse soft tissue swelling without underlying osseous abnormality. 09/21/2019. CXR. Patchy right basilar airspace disease with mild to moderate right effusion suspicious for pneumonia and parapneumonic effusion. 09/21/2019. Right elbow x-ray. Posterior soft tissue swelling. Due 5 IV antibiotics. Day 5 IV vancomycin. Day 5 IV Zosyn. Continue empiric IV antibiotics. Follow-up blood cultures. Will DC home with antibiotic once surgery signed off. (2) IV drug abuse Is this a current diagnosis for this admission?: Yes Plan: Supportive care, opiate PRN withdrawal, consider 2D echo (if not done at [place]) for evaluation of endocarditis or embolic source of pneumonia. (3) Smoker Is this a current diagnosis for this admission?: Yes Plan: Counseled on quitting. NicoDerm patch provided. (4) Pneumonia Qualifiers: Pneumonia type: due to unspecified organism Laterality: right Lung location: lower lobe of lung Qualified Code(s): J18.9 - Pneumonia, unspecified organism Is this a current diagnosis for this admission?: Yes Plan: Likely polymicrobial or cardioembolic given history of story of drug abuse, necrotizing fasciitis Pending records from [facility] pending. 09/21/2019. CXR. Patchy right basilar airspace disease with mild to moderate right effusion suspicious for pneumonia and parapneumonic effusion. Continue empiric IV antibiotics. 2D echo negative for any endocarditis. Cultures negative so far.
[2019-09-27] MEDS ORDERED: IPRATROPIUM/ALBUTEROL 0.5-2.5 MG/3 ML AMPUL NEB PRN (14:25)
--- NOTE | 2019-09-27 20:28 | PDOC PROGRESS REPORT ---
Subjective Progress Note for:: 09/27/19 Subjective:: Pains along I&D site on the left knee Reason For Visit: PNA CELLULITIS, IVDU Physical Exam Vital Signs: Temp Pulse Resp BP Pulse Ox 98.2 F 64 18 130/69 H 99 09/27/19 20:00 09/27/19 20:00 09/27/19 20:00 09/27/19 20:00 09/27/19 20:00 Intake & Output 09/26/19 09/27/19 09/28/19 06:59 06:59 06:59 Intake Total 2776 2555 2710 Output Total 20 Balance 2756 2555 2710 Exam: Wound packing on the left knee was removed. No drainage but still with some erythema. Redressed with a layer of Xeroform gauze 4 x 4 Kerlix and Bryce bandage. Results Laboratory Results: 09/26/19 06:21 09/26/19 06:21 09/25/19 09:47 Knee - Abscess Gram Stain - Final 09/25/19 09:50 Knee - Abscess Gram Stain - Final 09/21/19 21:23 Blood Blood Culture - Final NO GROWTH IN 5 DAYS 09/21/19 17:15 Blood Blood Culture - Final NO GROWTH IN 5 DAYS 09/21/19 09/21/19 16:14 16:14 Creatine Kinase < 20 L Troponin I < 0.012 Impressions: Elbow X-Ray 09/21/19 20:52 IMPRESSION: Posterior soft tissue swelling copyright 2010 [employer]- All Rights Reserved Knee X-Ray 09/21/19 20:52 IMPRESSION: Diffuse soft tissue swelling without underlying acute osseous anomaly. If there is continued concern for soft tissue gas, consider CT. copyright 2011 [employer]- All Rights Reserved Extremity Ultrasound 09/21/19 23:18 IMPRESSION: No sonographic evidence for abscess copyright 2010 [employer]- All Rights Reserved Chest X-Ray 09/26/19 00:00 IMPRESSION: Pleural effusions as above, right greater than left. Right collection may be minimally progressive. Assessment & Plan - Diagnosis (1) Abscess of left lower extremity Is this a current diagnosis for this admission?: Yes (2) IV drug abuse Is this a current diagnosis for this admission?: Yes (3) Smoker Is this a current diagnosis for this admission?: Yes - Time Time Spent with patient: 15-24 minutes - Plan Summary Plan Summary: Plans: Patient may be discharged on p.o. antibiotics. Arrangement for [facility] home wound check of the left knee 2-3 times a week for the next 2 to 3 weeks. We can follow the patient in the surgical clinic in 2weeks. Will sign off
[2019-09-27] MEDS: MELATONIN 3 MG TABLET PO PRN (22:58)
[2019-09-28] MEDS: PIPERACILLIN SODIUM/TAZOBACTAM 4.5 GM in NORMAL SALINE 100 ML IV SCH ×2 (04:13→09:21)
[2019-09-28] MEDS: MORPHINE SULFATE 10 MG/ML INJ IV PRN ×3 (04:13→13:31)
[2019-09-28] MEDS: HEPARIN SOD (PORCINE) 5,000 UNIT/ML 1 ML VIAL SUBCUT SCH ×2 (05:46→13:28)
[2019-09-28] MEDS: KETOROLAC TROMETHAMINE INJ/PF 30 MG/1 ML SDV IV SCH ×2 (05:54→12:20)
[2019-09-28] MEDS: VANCOMYCIN HCL 1,250 MG in DEXTROSE 5%-WATER 250 ML IV SCH (05:54)
[2019-09-28] MEDS: OXYCODONE-ACETAMINOPHEN 5-325 MG TABLET PO PRN (05:58)
[2019-09-28 06:29] LABS: VANCOMYCIN,TROUGH 29.3 ug/mL (5.0-20.0)
[2019-09-28] MEDS: NORMAL SALINE 1000 ML 1,000 ML IV PRN (07:35)
[2019-09-28] MEDS: DOCUSATE SODIUM 100 MG CAPSULE PO SCH (09:16)
[2019-09-28 14:32] VITALS: BP 112/73
--- NOTE | 2019-09-28 16:53 | PDOC DISCHARGE SUMMARY ---
Impression - Admit/DC Date/PCP Admission Date/Primary Care Provider: 09/22/19 03:14 Discharge Date: 09/28/19 - Discharge Diagnosis (1) Cellulitis Is this a current diagnosis for this admission?: Yes (2) IV drug abuse Is this a current diagnosis for this admission?: Yes (3) Smoker Is this a current diagnosis for this admission?: Yes (4) Pneumonia Is this a current diagnosis for this admission?: Yes - Additional Information Resuscitation Status: Full Code Discharge Activity: Activity As Tolerated, Balance Activity w/Rest Referrals: [facility] [Provider Group] - 10/05/19 10:45 am (IF UNDER THE GLOBAL PERIOD IT WILL NOT BE A CHARGE. GLOBAL PERIOD IS UP AFTER THE ) WOUND CARE [Outside] - 10/09/19 10:00 am Prescriptions: Clindamycin HCl [Cleocin 300 mg Capsule] 300 mg PO TID 5 Days #15 capsule Acetaminophen with Codeine [Tylenol #3 Tablet] 1 each PO Q6 5 Days #20 tablet Home Medications: Acetaminophen with Codeine [Tylenol #3 Tablet] 1 each PO Q6 5 Days #20 tablet 09/28/19 Clindamycin HCl [Cleocin 300 mg Capsule] 300 mg PO TID 5 Days #15 capsule 09/28/19 History of Present Illiness History of Present Illness: HEAVENLY DISLA is a 29 year old female with a past medical history of heroin dependence, IV drug use, MRSA cellulitis, necrotizing fasciitis and recent pn eumonia diagnosed at [facility] from which she left A. She presents with right arm erythema, left thigh erythema and blistering, shortness of breath with nonproductive cough. She is found to have leukocytosis, anemia and hypokalemia. She complains of 4 days of erythema to the right forearm after attempting IV drug use, 1 week of erythema to the left thigh after attempting IV drug use and 1 week of cough and subjective fever. Ultrasound is negative for fluid collection, surgery is consulted for thigh with blistering and history of necrotizing fasciitis. She receives IV antibiotics and referred to the hospitalist for admission. Hospital Course Hospital Course: (1) Cellulitis/right medial aspect below knee abscess Was a started on empiric IV antibiotics. Cultures were obtained. Surgery consulted. Initially patient refusing surgery but finally agreed to undergo I&D. Day 4 status post left knee I&D day of discharge. All cultures remain negative. Left lower extremity ultrasound negative for any abscess or gas pockets. 09/22/2019. Left lower extremity ultrasound. Left lower extremity ultrasound no sonographic evidence for abscess. 09/21/2019. Left knee x-ray. Diffuse soft tissue swelling without underlying osseous abnormality. 09/21/2019. CXR. Patchy right basilar airspace disease with mild to moderate right effusion suspicious for pneumonia and parapneumonic effusion. 09/21/2019. Right elbow x-ray. Posterior soft tissue swelling. Received 6 days of IV antibiotics. Received 6 days of IV vancomycin. Received 6 days of IV Zosyn. Was discharged on clindamycin 300 mg p.o. 3 times daily for another 5 days. Patient reporting allergy to Bactrim. An appointment with wound care was obtained for patient. Patient strongly advised to follow-up with surgery at the surgical clinic and wound care and continue home wound care at home. (2) IV drug abuse Supportive care, opiate PRN withdrawal 2D echo negative for any endocarditis. (3) Smoker Counseled on quitting. NicoDerm patch provided. (4) Pneumonia Likely polymicrobial or cardioembolic given history of story of drug abuse, necrotizing fasciitis with her cultures remain negative and 2D echo was negative for any endocarditis. 09/21/2019. CXR. Patchy right basilar airspace disease with mild to moderate right effusion suspicious for pneumonia and parapneumonic effusion. Received 6 days of IV antibiotics. Received 6 days of IV vancomycin. Received 6 days of IV Zosyn. Was discharged on clindamycin 300 mg p.o. 3 times daily for another 5 days. Physical Exam Vital Signs: Temp Pulse Resp BP Pulse Ox 98.2 F 64 17 112/73 98 09/28/19 14:31 09/28/19 14:31 09/28/19 14:31 09/28/19 14:31 09/28/19 14:31 Intake & Output 09/27/19 09/28/19 09/29/19 06:59 06:59 06:59 Intake Total 2555 3802 1115 Output Total 475 Balance 0420 4755 1115 Weight 61.9 kg General appearance: PRESENT: no acute distress, well-developed, well-nourished Head exam: PRESENT: atraumatic, normocephalic Eye exam: PRESENT: conjunctiva pink, EOMI, PERRLA. ABSENT: scleral icterus Ear exam: PRESENT: normal external ear exam Mouth exam: PRESENT: moist, tongue midline Neck exam: ABSENT: carotid bruit, JVD, lymphadenopathy, thyromegaly Respiratory exam: PRESENT: clear to auscultation neda. ABSENT: rales, rhonchi, wheezes Cardiovascular exam: PRESENT: RRR. ABSENT: diastolic murmur, rubs, systolic mur mur Pulses: PRESENT: normal dorsalis pedis pul Vascular exam: PRESENT: normal capillary refill GI/Abdominal exam: PRESENT: normal bowel sounds, soft. ABSENT: distended, guarding, mass, organolmegaly, rebound, tenderness Rectal exam: PRESENT: deferred Extremities exam: PRESENT: full ROM, tenderness, other - Left knee medial aspect status post I&D, wound looks clean steak tenderizer machine to palpation. No active discharge. Neurovascularly intact. Right lower extremity below-knee lateral aspect wound looks clean, no active discharge, with coagulation tissue. Neurovascularly intact.. ABSENT: calf tenderness, clubbing, pedal edema Neurological exam: PRESENT: alert, awake, oriented to person, oriented to place, oriented to time, oriented to situation, CN II-XII grossly intact. ABSENT: motor sensory deficit Psychiatric exam: PRESENT: appropriate affect, normal mood. ABSENT: homicidal ideation, suicidal ideation Skin exam: PRESENT: dry, intact, warm. ABSENT: cyanosis, rash Results Laboratory Results: WBC 6.7 10^3/uL (4.0-10.5) 09/26/19 06:21 RBC 2.99 10^6/uL (3.72-5.28) L 09/26/19 06:21 Hgb 8.2 g/dL (12.0-15.5) L 09/26/19 06:21 Hct 24.3 % (36.0-47.0) L 09/26/19 06:21 MCV 81 fl (80-97) 09/26/19 06:21 MCH 27.6 pg (27.0-33.4) 09/26/19 06:21 MCHC 33.9 g/dL (32.0-36.0) 09/26/19 06:21 RDW 16.3 % (11.5-14.0) H 09/26/19 06:21 Plt Count 322 10^3/uL (150-450) 09/26/19 06:21 Lymph % (Auto) 31.1 % (13-45) 09/26/19 06:21 [place] % (Auto) 7.3 % (3-13) 09/26/19 06:21 Eos % (Auto) 2.8 % (0-6) 09/26/19 06:21 Baso % (Auto) 0.5 % (0-2) 09/26/19 06:21 Absolute Neuts (auto) 3.9 10^3/uL (1.7-8.2) 09/26/19 06:21 Absolute Lymphs (auto) 2.1 10^3/uL (0.5-4.7) 09/26/19 06:21 Absolute Monos (auto) 0.5 10^3/uL (0.1-1.4) 09/26/19 06:21 Absolute Eos (auto) 0.2 10^3/uL (0.0-0.6) 09/26/19 06:21 Absolute Basos (auto) 0.0 10^3/uL (0.0-0.2) 09/26/19 06:21 Total Counted 100 09/25/19 07:56 Seg Neutrophils % 58.3 % (42-78) 09/26/19 06:21 Seg Neuts % (Manual) 63 % (42-78) 09/25/19 07:56 Band Neutrophils % 4 % (3-5) 09/24/19 05:22 Lymphocytes % (Manual) 30 % (13-45) 09/25/19 07:56 Atypical Lymphs % 4 % (0) 09/25/19 07:56 Monocytes % (Manual) 1 % (3-13) L 09/25/19 07:56 Eosinophils % (Manual) 2 % (0-6) 09/25/19 07:56 Basophils % (Manual) 0 % (0-2) 09/25/19 07:56 Metamyelocytes % 3 % (0-1) H 09/23/19 05:37 Myelocytes % 1 % (0) H 09/23/19 05:37 Abs Neuts (Manual) 5.0 10^3/uL (1.7-8.2) 09/25/19 07:56 Abs Lymphs (Manual) 2.7 10^3/uL (0.5-4.7) 09/25/19 07:56 Abs Monocytes (Manual) 0.1 10^3/uL (0.1-1.4) 09/25/19 07:56 Absolute Eos (Manual) 0.2 10^3/uL (0.0-0.6) 09/25/19 07:56 Abs Basophils (Manual) 0.0 10^3/uL (0.0-0.2) 09/25/19 07:56 Toxic Granulation SLIGHT 09/23/19 05:37 Platelet Comment ADEQUATE 09/25/19 07:56 Anisocytosis 1+ 09/25/19 07:56 Sodium 141.5 mmol/L (137-145) 09/26/19 06:21 Potassium 4.0 mmol/L (3.6-5.0) 09/26/19 06:21 Chloride 104 mmol/L (98-107) 09/26/19 06:21 Carbon Dioxide 27 mmol/L (22-30) 09/26/19 06:21 Anion Gap 11 (5-19) 09/26/19 06:21 BUN 12 mg/dL (7-20) 09/26/19 06:21 Creatinine 0.71 mg/dL (0.52-1.25) 09/28/19 05:52 Est GFR ( Amer) > 60 (>60) 09/28/19 05:52 Est GFR (MDRD) Non-Af > 60 (>60) 09/28/19 05:52 Glucose 111 mg/dL (75-110) H 09/26/19 06:21 Lactic Acid (Sepsis) 1.5 mmol/L (0.7-2.1) 09/21/19 17:15 Calcium 8.2 mg/dL (8.4-10.2) L 09/26/19 06:21 Magnesium 2.1 mg/dL (1.6-2.3) 09/25/19 07:56 Total Bilirubin 0.3 mg/dL (0.2-1.3) 09/25/19 07:56 Direct Bilirubin 0.1 mg/dL (0.0-0.4) 09/25/19 07:56 Neonat Total Bilirubin Not Reportable 09/25/19 07:56 Neonat Direct Bilirubin Not Reportable 09/25/19 07:56 Neonat Indirect Bili Not Reportable 09/25/19 07:56 AST 15 U/L (14-36) 09/25/19 07:56 ALT 13 U/L (<35) 09/25/19 07:56 Alkaline Phosphatase 106 U/L (38-126) 09/25/19 07:56 Creatine Kinase < 20 U/L (30-135) L 09/21/19 16:14 Troponin I < 0.012 ng/mL 09/21/19 16:14 Total Protein 6.6 g/dL (6.3-8.2) 09/25/19 07:56 Albumin 2.6 g/dL (3.5-5.0) L 09/25/19 07:56 Serum HCG, Qual NEGATIVE (NEGATIVE) 09/21/19 16:14 Urine Color YELLOW 09/21/19 18:00 Urine Appearance SLIGHTLY-CLOUDY 09/21/19 18:00 Urine pH 5.0 (5.0-9.0) 09/21/19 18:00 Ur Specific [place] 1.023 09/21/19 18:00 Urine Protein 100 mg/dL (NEGATIVE) H 09/21/19 18:00 Urine Glucose (UA) NEGATIVE mg/dL (NEGATIVE) 09/21/19 18:00 Urine Ketones NEGATIVE mg/dL (NEGATIVE) 09/21/19 18:00 Urine Blood NEGATIVE (NEGATIVE) 09/21/19 18:00 Urine Nitrite (Reflex) NEGATIVE (NEGATIVE) 09/21/19 18:00 Urine Bilirubin NEGATIVE (NEGATIVE) 09/21/19 18:00 Urine Urobilinogen 2.0 mg/dL (<2.0) H 09/21/19 18:00 Leukocyte Esterase Rfl TRACE (NEGATIVE) H 09/21/19 18:00 Urine RBC (Auto) 2 /HPF 09/21/19 18:00 Urine Bacteria (Auto) TRACE /HPF 09/21/19 18:00 Urine WBC (Reflex) 9 /HPF 09/21/19 18:00 Squamous Epi Cells Auto 18 /HPF 09/21/19 18:00 Urine Mucus (Auto) OCC /LPF 09/21/19 18:00 Urine Ascorbic Acid NEGATIVE (NEGATIVE) 09/21/19 18:00 Time Trough Drawn 0552 09/28/19 05:52 Vancomycin Trough 29.3 ug/mL (5.0-20.0) H 09/28/19 05:52 Urine Opiates Screen NEGATIVE 09/21/19 18:06 Urine Methadone Screen NEGATIVE 09/21/19 18:06 Ur Barbiturates Screen NEGATIVE 09/21/19 18:06 Ur Phencyclidine Scrn NEGATIVE 09/21/19 18:06 Ur Amphetamines Screen NEGATIVE 09/21/19 18:06 U Benzodiazepines Scrn NEGATIVE 09/21/19 18:06 Urine Cocaine Screen NEGATIVE 09/21/19 18:06 U Marijuana (THC) Screen UNCONFIRMED POSITIVE 09/21/19 18:06 Slides for Path Review PATHOLOGIST REVIEWED 09/23/19 05:37 09/21/19 16:14 Troponin I < 0.012 Impressions: Chest X-Ray 09/21/19 15:19 IMPRESSION: Patchy right basilar airspace disease with mild to moderate right effusion suspicious for pneumonia and parapneumonic effusion. Elbow X-Ray 09/21/19 20:52 IMPRESSION: Posterior soft tissue swelling copyright 2010 [employer]- All Rights Reserved Knee X-Ray 09/21/19 20:52 IMPRESSION: Diffuse soft tissue swelling without underlying acute osseous anomaly. If there is continued concern for soft tissue gas, consider CT. copyright 2010 [employer]- All Rights Reserved Extremity Ultrasound 09/21/19 23:18 IMPRESSION: No sonographic evidence for abscess copyright 2010 [employer]- All Rights Reserved Chest X-Ray 09/26/19 00:00 IMPRESSION: Pleural effusions as above, right greater than left. Right collection may be minimally progressive. Plan Health Concerns: Continued IV drug abuse. Time Spent: Greater than 30 Minutes Stroke Is this a Stroke Patient?: No Acute Heart Failure - Is this a Heart Failure Patient?: No
[2019-09-28] MEDS ORDERED: VANCOMYCIN HCL 1,250 MG in DEXTROSE 5%-WATER 250 ML IV SCH (18:00)
== END 2019-09-28 14:50 | disposition home or self-care (01) | DRG 602 ==
LOC: ER 13:46 → EH 09-22 03:14 → 4S 09-22 04:08
PROVIDERS: ADMIT Internal Medicine; ATTEND Internal Medicine
PROC: 0HBLXZZ Excision of Left Lower Leg Skin, External Approach (ICD-10-PCS; principal; 2019-09-22)
PROC: 0J9P0ZX Drainage of Left Lower Leg Subcutaneous Tissue and Fascia, Open Approach, Diagnostic (ICD-10-PCS; 2019-09-25)
DX: L03.116 Cellulitis of left lower limb (principal); J18.9 Pneumonia, unspecified organism; F11.20 Opioid dependence, uncomplicated; L02.416 Cutaneous abscess of left lower limb; F17.210 Nicotine dependence, cigarettes, uncomplicated; D64.9 Anemia, unspecified; E87.6 Hypokalemia; Z86.14 Personal history of Methicillin resistant Staphylococcus aureus infection
CPT/HCPCS: 01320; 36415; 71046; 76882; 80048; 80053; 80202; 80307; 81001; 82550; 82565; 83605; 83735; 84132; 84484; 84703; 85025; 87040; 87070; 87075; 87077; 87205; 93005; 93010; 93306; 94799; 96365; 96366; 96367; 96375; 99285; A6266; J1170; J1885; J2250; J2270; J2405; J2543; J2704; J3010; J3370; J3490; J7030; J7050; J7060; J7620

== ENCOUNTER 2020-08-14 00:59 | Inpatient (IN) | payer MEDICAID ==
[2020-08-14 01:06] LABS: ABSOLUTE LYMPHOCYTES (AUTO) 1.6 10^3/uL (0.5-4.7); ABSOLUTE MONOCYTES (AUTO) 1.1 10^3/uL (0.1-1.4); ABSOLUTE NEUT (AUTO) 10.1 10^3/uL (1.7-8.2); BASOPHILS % (AUTO) 0.1 % (0-2); EOSINOPHILS % (AUTO) 0.2 % (0-6); HEMATOCRIT 29.9 % (36.0-47.0); LYMPHOCYTES % (AUTO) 12.2 % (13-45); MEAN CORPUSCULAR HEMOGLOBIN 26.2 pg (27.0-33.4); MEAN CORPUSCULAR HGB CONC 33.5 g/dL (32.0-36.0); MEAN CORPUSCULAR VOLUME 78 fl (80-97); MONOCYTES % (AUTO) 8.6 % (3-13); PLATELET COUNT 391 10^3/uL (150-450); RED BLOOD COUNT 3.82 10^6/uL (3.72-5.28); RED CELL DISTRIBUTION WIDTH 17.1 % (11.5-14.0); SEGMENTED NEUTROPHILS % (AUTO) 78.9 % (42-78); WHITE BLOOD COUNT 12.9 10^3/uL (4.0-10.5)
[2020-08-14] MEDS ORDERED: EPHEDRINE SULFATE INJ 50 MG/1 ML AMPULE ONE (01:15)
[2020-08-14] MEDS ORDERED: ROPIVACAINE HCL 0.2% INJ/PF (2 MG/ML) 20 ML SDV ONE (01:16)
[2020-08-14] MEDS ORDERED: FENTANYL/BUPIVACAINE/NS/PF 300 MCG/150 ML RTUINJ EPI ONE (01:16)
[2020-08-14 01:25] LABS: ALBUMIN 3.6 g/dL (3.5-5.0); ALKALINE PHOSPHATASE 267 U/L (38-126); ANION GAP 12 (5-19); ASPARTATE AMINO TRANSFERASE 45 U/L (14-36); BILIRUBIN,DIRECT 0.2 mg/dL (0.0-0.4); BILIRUBIN,TOTAL 1.1 mg/dL (0.2-1.3); BLOOD UREA NITROGEN 10 mg/dL (7-20); CARBON DIOXIDE 17 mmol/L (22-30); CHLORIDE 103 mmol/L (98-107); GLUCOSE 113 mg/dL (75-110); POTASSIUM 4.2 mmol/L (3.6-5.0); TOTAL PROTEIN 7.3 g/dL (6.3-8.2); URIC ACID 6.7 mg/dL (2.5-6.2)
[2020-08-14] MEDS ORDERED: LIDOCAINE 1% INJ-PF (10 MG/ML) 30 ML SDV ONE (01:27)
[2020-08-14] MEDS ORDERED: MISOPROSTOL 0.2 MG TABLET ONE (01:27)
[2020-08-14] MEDS ORDERED: OXYTOCIN 10 UNIT/ML VIAL ONE (01:27)
[2020-08-14] MEDS ORDERED: OXYTOCIN/0.9 % SODIUM CHLORIDE 30 UNIT/500 ML RTUINJ ONE (01:27)
[2020-08-14 01:41] LABS: BACTERIA (WET MOUNT) 4+ BACTERIA SEEN; EPITHELIALS (WET MOUNT) 4+ EPITHELIALS SEEN; RBCS (WET MOUNT) NO RBCS SEEN; T.VAGINALIS (WET MOUNT) NO TRICHOMONAS SEEN; WBCS (WET MOUNT) 4+ WBCS SEEN; YEAST (WET MOUNT) NO YEAST SEEN
[2020-08-14] MEDS ORDERED: PENICILLIN G-K 5 MILLION UNIT VIAL ONE ×2 (01:52→05:13)
--- NOTE | 2020-08-14 01:57 | RADIOLOGY REPORT (SQ) ---
Obstetric ultrasound: 08/14/2020 1:53 AM TRIGONOMETRY TEACHER HISTORY: 30-year-old female with evaluation for well-being. TECHNIQUE: Multiple grayscale and color Doppler images of the pelvis were obtained transabdominally. COMPARISON: None available for this . FINDINGS: A single intrauterine gestation is seen, which is cephalic in position. The placenta is fundal in location, and free of internal os of the cervix. There are grade 2 changes seen at the placenta. The cervix measures at least 2.0 cm in length. The estimated heart rate is approximately 178 bpm. The GANESH measures 16.7 cm, with the deepest vertical pocket of approximately 6.4 cm. The following measurements were obtained: BPD: 8.7 cm, consistent with 35 weeks and 1 day(s). HC: 30.6 cm, consistent with 34 weeks and 1 day(s). AC: 31.3 cm, consistent with 35 weeks and 1 day(s). FL: 7.2 cm, consistent with 36 weeks and 4 day(s). The estimated weight is approximately 2679 g +/- 15%. The fetus measures at 35 weeks and 2 day(s) by AUA, consistent with an estimated due date of 09/16/2020. IMPRESSION: A single, live intrauterine gestation is seen which is currently cephalic in position. The fetus measures at 35 weeks and 2 day(s) by AUA, consistent with an estimated due date of 09/16/2020. 2.Evaluation is for anatomy limited by the late gestational age. Interval follow-up with an obstetric care provider is recommended.
[2020-08-14] MEDS ORDERED: RINGERS SOLUTION,LACTATED 1,000 ML IV PRN (01:59)
[2020-08-14] MEDS ORDERED: PENICILLIN G POTASSIUM 5,000,000 UNIT in DEXTROSE 5%-WATER 100 ML IV ONE (01:59)
[2020-08-14] MEDS ORDERED: RINGERS SOLUTION,LACTATED 1,000 ML IV ONE (01:59)
[2020-08-14 02:14] LABS: CHLAM PCR DETECTED (NOT DETECT)
[2020-08-14] MEDS ORDERED: AZITHROMYCIN INJ 500 MG VIAL IV ONE ×2 (04:07→04:16)
[2020-08-14 04:13] LABS: APPEARANCE,URINE CLOUDY; BILIRUBIN,URINE NEGATIVE (NEGATIVE); COLOR,URINE AMBER; GLUCOSE, URINE NEGATIVE (NEGATIVE); KETONES,URINE 20 mg/dL (NEGATIVE); LEUKOCYTE ESTERASE,URINE TRACE (NEGATIVE); NITRITE,URINE NEGATIVE (NEGATIVE); PROTEIN,URINE 30 mg/dL (NEGATIVE); URINE SPECIFIC GRAVITY 1.031
[2020-08-14 04:33] LABS: URINE BARBITURATES SCREEN NEGATIVE; URINE BENZODIAZEPINES SCREEN NEGATIVE; URINE METHADONE SCREEN NEGATIVE; URINE PHENCYCLIDINE SCREEN NEGATIVE
[2020-08-14] MEDS ORDERED: MAG HYDROX/AL HYDROX/SIMETH SUSP 30 ML UDCUP ONE (04:36)
[2020-08-14 04:39] LABS: URINE AMPHETAMINES SCREEN UNCONFIRMED POSITIVE; URINE COCAINE SCREEN UNCONFIRMED POSITIVE
[2020-08-14 04:40] LABS: URINE MARIJUANA (THC) SCREEN UNCONFIRMED POSITIVE
[2020-08-14] MEDS ORDERED: PENICILLIN G POTASSIUM 2,500,000 UNIT in DEXTROSE 5%-WATER 50 ML IV SCH (05:00)
[2020-08-14] MEDS ORDERED: ONDANSETRON HCL INJ/PF 4 MG/2 ML SDV ONE (05:14)
[2020-08-14] MEDS ORDERED: LORAZEPAM 1 MG TABLET PO PRN (05:15)
[2020-08-14] MEDS ORDERED: ONDANSETRON HCL INJ/PF 4 MG/2 ML SDV IV ONE (05:16)
[2020-08-14] MEDS ORDERED: LORAZEPAM 1 MG TABLET ONE (05:18)
[2020-08-14] MEDS ORDERED: LORAZEPAM INJ 2 MG/1 ML VIAL IV PRN (05:40)
[2020-08-14] MEDS ORDERED: LORAZEPAM INJ 2 MG/1 ML VIAL ONE (05:46)
[2020-08-14] MEDS ORDERED: PROMETHAZINE HCL 25 MG SUPP.RECT PR PRN (08:16)
[2020-08-14] MEDS ORDERED: BENZOCAINE/MENTHOL AEROSOL SPRAY 56 ML TOP PRN (08:16)
[2020-08-14] MEDS ORDERED: MAGNESIUM HYDROXIDE SUSP 30 ML UDCUP PO PRN (08:16)
[2020-08-14] MEDS ORDERED: NA PHOS,M-B/NA PHOS,DI-BA (ADULT) 133 ML ENEMA PR PRN (08:16)
[2020-08-14] MEDS ORDERED: GLYCERIN/WITCH HAZEL LEAF 1 EACH MED..WIPE TP PRN (08:16)
[2020-08-14] MEDS ORDERED: PROMETHAZINE HCL INJ 25 MG/1 ML VIAL IV PRN (08:16)
[2020-08-14] MEDS ORDERED: DIPH/PERTUSS(ACELL)/TETANUS VAC/PF 0.5 ML SYR (>=10YO) IM PRN (08:16)
[2020-08-14] MEDS ORDERED: MEASLES,MUMPS&RUBELLA VACC/PF 0.5 ML VIAL SUBCUT PRN (08:16)
[2020-08-14] MEDS ORDERED: DIBUCAINE 1% OINTMENT 28 GM TP PRN (08:16)
[2020-08-14] MEDS ORDERED: PROMETHAZINE HCL 25 MG TABLET PO PRN (08:16)
[2020-08-14] MEDS ORDERED: DIPHENHYDRAMINE HCL 25 MG CAPSULE PO PRN (08:16)
[2020-08-14] MEDS ORDERED: ZOLPIDEM TARTRATE 5 MG TABLET PO PRN (08:16)
[2020-08-14] MEDS ORDERED: OXYTOCIN/0.9 % SODIUM CHLORIDE 30 UNIT/500 ML RTUINJ IV PRN (08:16)
[2020-08-14] MEDS ORDERED: ACETAMINOPHEN 650 MG SUPP.RECT PR PRN (08:16)
[2020-08-14] MEDS ORDERED: PSEUDOEPHEDRINE HCL 30 MG TABLET PO PRN (08:16)
[2020-08-14] MEDS ORDERED: ACETAMINOPHEN WITH CODEINE #3 TABLET ONE (08:45)
[2020-08-14] MEDS: ACETAMINOPHEN WITH CODEINE #3 TABLET PO PRN ×3 (08:47→17:33)
--- NOTE | 2020-08-14 08:58 | Delivery Summary ---
Del Sum A-C Datetime Report Generated by CPN: 08/14/2020 08:58 DELIVERY PERSONNEL DELIVERY PERSONNEL: [id number] Delivery Doctor:: Estefania Barker MD Labor and Delivery Nurse:: Laury Hoff RNhearing therapist Nurse:: Leonela Ramos RN Nursery Nurse:: Nathalie Mcintyre RN Nursery Nurse:: Razia Balderas RN Aircraft Steel Fabricator/PLANT TECHNICIAN/CONTROL ROOM OPERATOR: [facility] Aircraft Steel Fabricator/PLANT TECHNICIAN/CONTROL ROOM OPERATOR: Maria Eugenia Daigle, SUPERVISOR NUT PROCESSING MATERNAL INFORMATION Delivery Anesthesia: Epidural Medications After Delivery: Pitocin 30 Units in 500ml NS/D5W Estimated Blood Loss (ml): 250 Delivery QBL: 150 Maternal Complications: Other Complication Details: -hepatitis C -positive for cocaine, heroin/opiates, amphetamines, and marijuana -no care LABOR SUMMARY EDC: 08/30/2020 00:00 No. Babies in Womb: 1 Attempted: No Labor Anesthesia: Epidural LABOR INFORMATION Reason for Induction: Not Applicable Onset of Labor: 08/14/2020 00:00 Complete Dilatation: 08/14/2020 07:48 Oxytocin: N/A Group B Beta Strep: unknown Antibiotics # of Doses: 2 Antibiotics Time of Last Dose: 08/14/2020 05:23 Name of Antibiotic Given: Penicillin Steroids Given: None Reason Steroids Not Administered: Not Applicable MEMBRANES Membranes Rupture Method: Spontaneous Rupture of Membranes: 08/14/2020 00:00 Length of Rupture (hr): 8.97 Amniotic Fluid Color: Clear Amniotic Fluid Amount: Large Amniotic Fluid Odor: Normal STAGES OF LABOR Stage 1 hr: 8 Stage 1 min: 48 Stage 2 hr: 0 Stage 2 min: 10 Stage 3 hr: 0 Stage 3 min: 6 Total Time in Labor hr: 9 Total Time in Labor min: 4 VAGINAL DELIVERY Episiotomy: None Laceration #1: None Laceration Extension #1: N/A Laceration Repair: Not Applicable Sponge Count Correct: Vaginal Sweep Performed Sharps Count Correct: N/A CSECTION DELIVERY Primary Indication: N/A Secondary Indication: N/A CSection Incidence: N/A Labor: N/A Elective: N/A CSection Incision: N/A BABY A INFORMATION Infant Delivery Date/Time: 08/14/2020 07:58 Method of Delivery: Vaginal Nurse Controlled Delivery: No Born in Route : No : N/A Forceps: N/A Vacuum Extraction: N/A Shoulder Dystocia : No PRESENTATION/POSITION BABY A Presentation: Cephalic Cephalic Presentation: Vertex Vertex Position: Left Occipital Anterior Breech Presentation: N/A PLACENTA INFORMATION BABY A Placenta Delivery Time : 08/14/2020 08:04 Placenta Method of Delivery: Spontaneous Placenta Status: Delivered SCORES BABY A Heart Rate 1 min: >100 bpm Resp Effort 1 min: Good Cry Reflex Irritability 1 min: Cough or Sneeze or Pulls Away Muscle Tone 1 min: Active Motion Color 1 min: Blue/Pale Resuscitation Effort 1 min: Tactile Stimulation SCORE 1 MIN: 8 Heart Rate 5 min: >100 bpm Resp Effort 5 min: Good Cry Reflex Irritability 5 min: Cough or Sneeze or Pulls Away Muscle Tone 5 min: Active Motion Color 5 min: Body Jolly, Extremities Blue Resuscitation Effort 5 min: N/A SCORE 5 MIN: 9 INFORMATION BABY A Gestational Age at Delivery: 37.5 Gestational Status: Early Term- 37- 38.6 Weeks Outcome : Liveborn Condition : Stable Sex: Female IDENTIFICATION BABY A Verification Date/Time: 08/14/2020 08:20 ID Band Number: [id number] Mother's Name Verified: Yes RN Verifying Infant: B Baidy RN/C Thuy RN WEIGHT/LENGTH BABY A Birthweight (gm): 2810 Weight (lb): 6 Weight (oz): 3 Infant Length (in): 19.25 Length (cm): 48.90 CORD INFORMATION BABY A No. Cord Vessels: 3 Nuchal Cord : N/A Cord Blood Taken: Yes-For Eval (Mom's Blood Type - or O+) Suction: None ASSESSMENT BABY A Complications: Meconium Physical Findings at Delivery: Within Normal Limits Skin to Skin: No Transferred To: Nursery BABY B INFORMATION : N/A SIGNATURES Signature: with User ID: [email or web address]
--- NOTE | 2020-08-14 08:58 | Birth Certificate Data ---
Cert Data Datetime Report Generated by CPN: 08/14/2020 08:58 CERTIFICATE DATA Delivery Provider: Estefania Barker MD (08/14/2020 01:23:Leonela Ramos RN) 47a. Care: No (08/14/2020 01:23:Lucita Reno RN) 47d. Number of Visits: 0 (08/14/2020 01:23:Lucita Reno RN) 48a. Number of Prev Live Births: 4 (08/14/2020 01:23:Lucita Reno RN) 48b. Now Livin (08/14/2020 01:23:Lucita Reno RN) 48c. Live Births Now : 0 (08/14/2020 01:23:QS system process) 48d. Date of Last Live : 08/29/2012 00:00 (08/14/2020 01:23:Lucita Reno RN) RISK FACTORS IN THIS 49a. Diabetes: No (08/14/2020 01:23:Lucita Reno RN) 49b. Hypertension: No (08/14/2020 01:23:Lucita Reno RN) 49c. Previous Births: 4 (08/14/2020 01:23:Lucita Reno RN) 49d. Stillborns: No (08/14/2020 01:23:Lucita Reno RN) 49d. IUGR: No (08/14/2020 01:23:Lucita Reno RN) 49e. Infertility Treatment: No (08/14/2020 01:23:Lucita Reno RN) 49f. Previous Cesareans: 0 (08/14/2020 01:23:Lucita Reno RN) Mother's Height 50b. Height Inches: 61 (08/14/2020 04:39:QS system process) Mother's Weight 51a. Pre- Weight (lbs): 120 (08/14/2020 01:23:Lucita Reno RN) 51b. Weight at Delivery (lbs): 130 (08/14/2020 04:39:QS system process) Infections Present/Treated 53a. Gonorrhea: No (08/14/2020 01:23:Lucita Reno RN) Results this Hospital Visit : Negative (08/14/2020 01:23:Consuelo Acuna RN) 53b. Syphilis: No (08/14/2020 01:23:Lucita Reno RN) 53c. Chlamydia: Yes (08/14/2020 01:23:Lucita Reno RN) Results this Hospital Visit: Positive (08/14/2020 01:23:Consuelo Acuna RN) 53d. Hepatitis B: No (08/14/2020 01:23:Lucita Reno RN) Results this Hospital Visit: Negative (08/14/2020 01:23:Lucita Reno RN) 53e. Hepatitis C: Positive (08/14/2020 01:23:Consuelo Acuna RN) 53h. Mother Tested for HBsAG: Yes (08/14/2020 01:23:Lucita Reno RN) 53i. Date Tested: 08/14/2020 00:00 (08/14/2020 01:23:Lucita Reno RN) 53j. Test Result: Negative (08/14/2020 01:23:Lucita Reno RN) Obstetric Procedures 54a, b, c. Obstetric Procedures: Ultrasound (08/14/2020 01:23:Lucita Minormona, RN) Cigarette Smoking Cigarette Smoking: Current Everyday Smoker. [id number] (08/14/2020 01:23:Lucita Minormona, RN) Onset of Labor 56a. PROM >12 Hrs: 8.97 (08/14/2020 01:23:QS system process) 56b. Precipitous Labor <3 Hrs: 9 (08/14/2020 01:23:QS system process) 56c. Prolonged Labor > 20 Hrs: 9 (08/14/2020 01:23:QS system process) 57a. Induction of Labor: N/A (08/14/2020 01:23:Laury Hoff RN) 57c. Non-Vertex Presentation A: Vertex (08/14/2020 01:23:Leonela Ramos RN) 57d. Steroids - Lung Mat: None (08/14/2020 01:23:Leonela Ramos RN) 57d. Steroids - Lung Mat: Not Applicable (08/14/2020 01:23:Leonela Ramos RN) 57e. Antibiotics During Labor: 08/14/2020 05:23 (08/14/2020 01:23:Laury Hoff RN) 57g. Moderate/Heavy Meconium: Clear (08/14/2020 01:03:Lucita Reno RN) 57h. Intolerance of Labor: N/A (08/14/2020 01:23:Laury Hoff RN) : N/A (08/14/2020 01:23:Laury Hoff RN) 57i. Epidural/Spinal Anesthesia: Epidural (08/14/2020 01:23:Leonela Ramos RN) Method of Delivery 58a. Forceps - Unsuccessful A: N/A (08/14/2020 01:23:Leonela Ramos RN) 58b. Vacuum - Unsuccessful A: N/A (08/14/2020 01:23:Leonela Ramos RN) 58c. Presentation at 58c. Presentation at - A : Vertex (08/14/2020 01:23:Leonela Ramos RN) 58c. Presentation at - A : N/A (08/14/2020 01:23:Leonela Ramos RN) 58c. Presentation at - A : Cephalic (08/14/2020 01:23:Leonela Ramos RN) Final Route and Method of Del 58d. Baby A Route/Delivery: Vaginal (08/14/2020 07:58:Leonela Ramos RN) 58e. Trial of Labor Attempted: No (08/14/2020 01:23:Leonela Ramos RN) 58e. Trial of Labor Attempted A: N/A (08/14/2020 01:23:Leonela Ramos RN) 58e. Trial of Labor Attempted B: N/A (08/14/2020 01:23:Leonela Ramos RN) Maternal Morbidity 59b. 3rd or 4th Degree Lacs: None (08/14/2020 01:23:Estefania Barker MD ([facility])) Birthweight Baby A: 2810 (08/14/2020 01:23:Leonela Ramos RN) 60a. Pounds : 6 (08/14/2020 01:23:QS system process) 60b. Ounces: 3 (08/14/2020 01:23:QS system process) 61. GA at Delivery Baby A: 37.5 (08/14/2020 01:23:Leonela Rachel RN) : Early Term- 37- 38.6 Weeks (08/14/2020 01:23:QS system process) 62a. 5 Minute Baby A: 9 (08/14/2020 01:23:QS system process)
--- NOTE | 2020-08-14 08:58 | Warning Signs in Babies ---
VOD Warning Signs Datetime Report Generated by [facility]: 08/14/2020 08:58 VOD#608 -Warning Signs in Babies: Needs to be viewed. (08/14/2020 01:23:Laury Hoff RN)
[2020-08-14] MEDS: FERROUS SULFATE 325 MG TABLET PO SCH ×2 (11:55→17:06)
[2020-08-14] MEDS: FAMOTIDINE 20 MG TABLET PO SCH ×2 (11:56→21:37)
[2020-08-14] MEDS: DOCUSATE SODIUM 100 MG CAPSULE PO SCH ×2 (11:56→17:05)
[2020-08-14] MEDS: PRENATAL VITAMIN W DHA CAPSULE PO SCH (11:56)
[2020-08-14] MEDS: SENNOSIDES/DOCUSATE 8.6-50 MG 1 EACH TABLET PO SCH (11:56)
[2020-08-14] MEDS: LORAZEPAM 1 MG TABLET PO PRN ×2 (13:31→21:37)
[2020-08-14] MEDS: IBUPROFEN 800 MG TABLET PO SCH ×2 (13:31→21:37)
[2020-08-15] MEDS: ACETAMINOPHEN WITH CODEINE #3 TABLET PO PRN ×6 (02:36→22:32)
[2020-08-15] MEDS: IBUPROFEN 800 MG TABLET PO SCH ×3 (06:11→22:09)
[2020-08-15] MEDS: LORAZEPAM 1 MG TABLET PO PRN ×2 (06:17→16:06)
[2020-08-15 06:32] LABS: HEMATOCRIT 29.1 % (36.0-47.0); HEMOGLOBIN 9.6 g/dL (12.0-15.5); MEAN CORPUSCULAR HEMOGLOBIN 26.1 pg (27.0-33.4); MEAN CORPUSCULAR HGB CONC 33.1 g/dL (32.0-36.0); MEAN CORPUSCULAR VOLUME 79 fl (80-97); PLATELET COUNT 357 10^3/uL (150-450); WHITE BLOOD COUNT 14.7 10^3/uL (4.0-10.5)
[2020-08-15] MEDS: FAMOTIDINE 20 MG TABLET PO SCH ×2 (09:16→22:09)
[2020-08-15] MEDS: SENNOSIDES/DOCUSATE 8.6-50 MG 1 EACH TABLET PO SCH (09:16)
[2020-08-15] MEDS: DOCUSATE SODIUM 100 MG CAPSULE PO SCH ×2 (09:16→18:25)
[2020-08-15] MEDS: PRENATAL VITAMIN W DHA CAPSULE PO SCH (09:16)
[2020-08-15] MEDS: FERROUS SULFATE 325 MG TABLET PO SCH ×2 (09:16→18:25)
--- NOTE | 2020-08-15 10:26 | Admission Physical ---
Datetime Report Generated by CPN: 08/15/2020 10:26 CURRENT ADMISSION Chief Complaint: Uterine Contractions Indication for Induction: Not Applicable Admit Impression : , Intrauterine Admit Plan: Admit to Unit ALLERGIES Medication Allergies: Yes Medication Allergies: sulfamethoxazole (08/14/2020); trimethoprim (08/14/2020) Medication Allergies: bactrim-hives Latex: No Latex Allergies Food Allergies: denies Environmental Allergies: denies OBSTETRICAL HISTORY EDC: 08/30/2020 00:00 : 5 Para: 4 : 4 SAB: 0 IAB: 0 Ectopic: 0 Livin Cesareans: 0 VBACs: 0 Multiple Births: 0 Gestational Diabetes: No Rh Sensitization: No Incompetent Cervix: No DOMINIC: No Infertility: No ART Treatment: No Uterine Anomaly: No IUGR: No Hx Previous C/S: No Macrosomia: No Hx Loss/Stillborn: No PIH: No Hx : No Placenta Previa/Abruption: No Depression/PP Depression: No PTL/PROM: Yes Post Hemorrhage: No Current Procedures: Ultrasound Obstetrical History Comments: g1-2009, , girl, 36 g2- 30 weeks, , 2010, male g3- 2011, , 37 weeks, male g4-2012, , girl, 36 weeks g5-current no care positive for chlamydia and iv drug use g5-current, no care, using heroin SEE RECORDS Alcohol: No Marijuana : Yes Marijuana Frequency: Occasional Years Used: 2 Previous Treatment: None Cocaine: No Other Illicit Drugs: Yes Illicit Drug Comments: heroin iv daily, last used 10/30/20 for 5 years Cigarettes: Current Everyday Smoker. 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 patient states that she has had multiple other spots on her body that have received treatment for infections of unknown orgin, seizures during withdrawals INFECTIOUS HISTORY Gonorrhea: No Genital Herpes: No Chlamydia: Yes Tuberculosis: No Syphilis: No Hepatitis: No HIV/AIDS Exposure: No Rash or Viral Illness: No HPV: No Infectious History Comments: hepatitis c 2018? no current meds, chlamydia in past and positive on admission PHYSICAL EXAM General: Normal HEENT: Normal Neurologic: Normal Thyroid: Normal Heart: Normal Lungs: Normal Breast: Deferred Back: Normal Abdomen: Normal Genitourinary Exam: Normal Extremities: Abnormal DTRs: Normal Pelvic Type: Adequate Vital Signs: Reviewed FETUS A EGA: 37.5 Monitoring: External US FHR- Baseline: 140 FHR Category: Category I Admit Comment: We have uncertain dates and 35 weeks by ultrasound. The actimprom was positive but her adrian is 16 with a ballotable head. I am not confident that the membranes are ruptured. We may need to observe her. PLANS FOR LABOR AND DELIVERY Labor and Delivery: None Pain Management: Epidural Feeding Preference: Formula Benefit of Breast Feed Discussed: Yes INFORMED CONSENT Signature: with User ID: [email or web address]
--- NOTE | 2020-08-15 10:54 | PDOC PROGRESS REPORT ---
Subjective-OB Progress Note for:: 08/15/20 Subjective: reports bleeding slowing, pain controlled with current meds. denies needs Physical Exam (OB) Vital Signs: Temp Pulse Resp BP Pulse Ox 97.9 F 74 16 134/85 H 100 08/15/20 08:48 08/15/20 07:30 08/15/20 07:30 08/15/20 07:30 08/15/20 07:30 Intake & Output 08/14/20 08/15/20 08/16/20 06:59 06:59 06:59 Intake Total 1000 Balance 1000 Weight - Maternal Morbidity 59. Maternal Morbidity (serious complications experinced by the mother associated with labor and delivery: None of the above - Abdomen Description: Soft Hernia Present: No Fundal Description: Firm, Midline Fundal Height: u/u - u/2 - Abdominal Distension: No distension Tenderness: Nontender - Extremities Lower extremities: Roni's sign - neg Calf: Normal, Nontender Objective-Diagnostic Laboratory: 08/15/20 06:05 08/15/20 06:05 WBC 14.7 H RBC 3.70 L Hgb 9.6 L Hct 29.1 L MCV 79 L MCH 26.1 L MCHC 33.1 RDW 17.0 H Plt Count 357 Assessment and Plan(PN) - Time Spent with Patient Time with patient: Less than 15 minutes - Disposition Anticipated Discharge Disposition: Home, Self Care Anticipated Discharge Timeframe: within 24 hours
[2020-08-15 14:00] LABS: HEPATITIS C VIRUS AB >11.0 s/co ratio (0.0-0.9)
[2020-08-16] MEDS: LORAZEPAM 1 MG TABLET PO PRN ×2 (00:14→08:56)
[2020-08-16] MEDS: ACETAMINOPHEN WITH CODEINE #3 TABLET PO PRN ×2 (04:26→08:55)
[2020-08-16] MEDS: IBUPROFEN 800 MG TABLET PO SCH (06:10)
[2020-08-16 08:41] VITALS: BP 122/78
--- NOTE | 2020-08-16 09:34 | PDOC DISCHARGE SUMMARY ---
Impression - Admit/DC Date/PCP Admission Date/Primary Care Provider: 08/14/20 01:00 EST Discharge Date: 08/16/20 - Discharge Diagnosis (1) Vaginal delivery Is this a current diagnosis for this admission?: Yes (2) Hepatitis C carrier Is this a current diagnosis for this admission?: Yes (3) Abscess of left lower extremity Is this a current diagnosis for this admission?: Yes (4) IV drug abuse Is this a current diagnosis for this admission?: Yes (5) Smoker Is this a current diagnosis for this admission?: Yes - Additional Information Resuscitation Status: Full Code Discharge Diet: Regular Discharge Activity: Balance Activity w/Rest, Pelvic Rest Prescriptions: Ibuprofen [Motrin 800 mg Tablet] 800 mg PO Q8HP PRN #60 tablet PRN Reason: Home Medications: Vitamin [-U Multiple Vitamin Capsule] 1 tab PO DAILY 08/14/20 Ibuprofen [Motrin 800 mg Tablet] 800 mg PO Q8HP PRN #60 tablet 08/16/20 HPI Gestational Age: 37.5 Reason(s) for Admission: Onset of Labor Procedures: NST Intrapartum Procedure(s): Spontaneous Vaginal Delivery Hospital Course 59. Maternal Morbidity (serious complications experinced by the mother associat ed with labor and delivery: None of the above Results Laboratory Results: WBC 14.7 10^3/uL (4.0-10.5) H 08/15/20 06:05 RBC 3.70 10^6/uL (3.72-5.28) L 08/15/20 06:05 Hgb 9.6 g/dL (12.0-15.5) L 08/15/20 06:05 Hct 29.1 % (36.0-47.0) L 08/15/20 06:05 MCV 79 fl (80-97) L 08/15/20 06:05 MCH 26.1 pg (27.0-33.4) L 08/15/20 06:05 MCHC 33.1 g/dL (32.0-36.0) 08/15/20 06:05 RDW 17.0 % (11.5-14.0) H 08/15/20 06:05 Plt Count 357 10^3/uL (150-450) 08/15/20 06:05 Lymph % (Auto) 12.2 % (13-45) L 08/14/20 01:50 [address] [place] % (Auto) 8.6 % (3-13) 08/14/20 01:50 EST Eos % (Auto) 0.2 % (0-6) 08/14/20 01:50 EST Baso % (Auto) 0.1 % (0-2) 08/14/20 01:50 EST Absolute Neuts (auto) 10.1 10^3/uL (1.7-8.2) H 08/14/20 01:50 EST Absolute Lymphs (auto) 1.6 10^3/uL (0.5-4.7) 08/14/20 01:50 EST Absolute Monos (auto) 1.1 10^3/uL (0.1-1.4) 08/14/20 01:50 EST Absolute Eos (auto) 0.0 10^3/uL (0.0-0.6) 08/14/20 01:50 EST Absolute Basos (auto) 0.0 10^3/uL (0.0-0.2) 08/14/20 01:50 EST Seg Neutrophils % 78.9 % (42-78) H 08/14/20 01:50 EST Sodium 132.0 mmol/L (137-145) L 08/14/20 01:50 EST Potassium 4.2 mmol/L (3.6-5.0) 08/14/20 01:50 EST Chloride 103 mmol/L (98-107) 08/14/20 01:50 EST Carbon Dioxide 17 mmol/L (22-30) L 08/14/20 01:50 EST Anion Gap 12 (5-19) 08/14/20 01:50 EST BUN 10 mg/dL (7-20) 08/14/20 01:50 EST Creatinine 0.47 mg/dL (0.52-1.25) L 08/14/20 01:50 EST Glucose 113 mg/dL (75-110) H 08/14/20 01:50 EST Uric Acid 6.7 mg/dL (2.5-6.2) H 08/14/20 01:50 EST Calcium 10.0 mg/dL (8.4-10.2) 08/14/20 01:50 EST Total Bilirubin 1.1 mg/dL (0.2-1.3) 08/14/20 01:50 EST Direct Bilirubin 0.2 mg/dL (0.0-0.4) 08/14/20 01:50 EST Neonat Total Bilirubin Not Reportable 08/14/20 01:50 EST Neonat Direct Bilirubin Not Reportable 08/14/20 01:50 EST Neonat Indirect Bili Not Reportable 08/14/20 01:50 EST AST 45 U/L (14-36) H 08/14/20 01:50 EST ALT 39 U/L (<35) H 08/14/20 01:50 EST Alkaline Phosphatase 267 U/L (38-126) H 08/14/20 01:50 EST Lactate Dehydrogenase 128 U/L (120-246) 08/14/20 01:50 EST Total Protein 7.3 g/dL (6.3-8.2) 08/14/20 01:50 EST Albumin 3.6 g/dL (3.5-5.0) 08/14/20 01:50 EST Urine Color CARLEEN 08/14/20 03:03 Urine Appearance CLOUDY 08/14/20 03:03 Urine pH 6.0 (5.0-9.0) 08/14/20 03:03 Ur Specific [place] 1.031 08/14/20 03:03 Urine Protein 30 mg/dL (NEGATIVE) H 08/14/20 03:03 Urine Glucose (UA) NEGATIVE mg/dL (NEGATIVE) 08/14/20 03:03 Urine Ketones 20 mg/dL (NEGATIVE) H 08/14/20 03:03 Urine Blood SMALL (NEGATIVE) H 08/14/20 03:03 Urine Nitrite NEGATIVE (NEGATIVE) 08/14/20 03:03 Urine Bilirubin NEGATIVE (NEGATIVE) 08/14/20 03:03 Urine Urobilinogen 2.0 mg/dL (<2.0) H 08/14/20 03:03 Ur Leukocyte Esterase TRACE (NEGATIVE) H 08/14/20 03:03 Urine WBC (Auto) 9 /HPF 08/14/20 03:03 Urine RBC (Auto) 27 /HPF 08/14/20 03:03 Urine Bacteria (Auto) 3+ /HPF 08/14/20 03:03 Squamous Epi Cells Auto 1 /HPF 08/14/20 03:03 Urine Mucus (Auto) RARE /LPF 08/14/20 03:03 Urine Ascorbic Acid NEGATIVE (NEGATIVE) 08/14/20 03:03 Membranes Rupture POSITIVE (NEGATIVE) H 08/14/20 01:21 EST Epi Cells (Wet Prep) 4+ EPITHELIALS SEEN 08/14/20 01:25 EST Bacteria (Wet Prep) 4+ BACTERIA SEEN 08/14/20 01:25 EST Trichomonas (Wet Prep) NO TRICHOMONAS SEEN 08/14/20 01:25 EST Vaginal WBC 4+ WBCS SEEN 08/14/20 01:25 EST Vaginal RBC NO RBCS SEEN 08/14/20 01:25 EST Vaginal Yeast NO YEAST SEEN 08/14/20 01:25 EST Urine Opiates Screen UNCONFIRMED POSITIVE 08/14/20 03:03 Urine Methadone Screen NEGATIVE 08/14/20 03:03 Ur Barbiturates Screen NEGATIVE 08/14/20 03:03 Ur Phencyclidine Scrn NEGATIVE 08/14/20 03:03 Ur Amphetamines Screen UNCONFIRMED POSITIVE 08/14/20 03:03 U Benzodiazepines Scrn NEGATIVE 08/14/20 03:03 Urine Cocaine Screen UNCONFIRMED POSITIVE 08/14/20 03:03 U Marijuana (THC) Screen UNCONFIRMED POSITIVE 08/14/20 03:03 RPR NONREACTIVE (NONREACTIVE) 08/14/20 01:50 EST Chlamydia DNA (PCR) DETECTED (NOT DETECT) H 08/14/20 01:24 EST Hepatitis C ([place]) >11.0 s/co ratio (0.0-0.9) H 08/14/20 01:50 EST Hep C Verif Com 2 Comment (.) 08/14/20 01:50 EST HIV 1&2 Antibody NEGATIVE (NEGATIVE) 08/14/20 01:50 EST N.gonorrhoeae DNA (PCR) NOT DETECTED (NOT DETECT) 08/14/20 01:24 EST Rubella IgG Antibody 39.10 IU/mL 08/14/20 01:50 EST Rubella IgG Ab Interp POSITIVE 08/14/20 01:50 EST Blood Type O POSITIVE 08/14/20 01:50 EST Antibody Screen NEGATIVE 08/14/20 01:50 EST Impressions: Obstetrics Ultrasound 08/14/20 00:00 IMPRESSION: A single, live intrauterine gestation is seen which is currently cephalic in position. The fetus measures at 35 weeks and 2 day(s) by AUA, consistent with an estimated due date of 09/16/2020. 2.Evaluation is for anatomy limited by the late gestational age. Interval follow-up with an obstetric care provider is recommended. Plan Plan of Treatment: pt to follow up with primary care for care of wound states she is leaving now and is not interested in having her wound looked at, insists that it is fine, wants to sign out now and says she is leaving with or without discharge papers. I did instruct her to f/u at [facility] for care and contraception Time Spent: Less than 30 Minutes
--- NOTE | 2020-08-16 09:40 | PDOC PROGRESS REPORT ---
Subjective-OB Progress Note for:: 08/16/20 Subjective: I have seen patient this morning, she was anxious to leave. States her leg is fine and she is not interested in having any antibiotics or further assessment of wound. She says she was supposed to have a skin graft but did not go back for it. I was going to discuss f/u antibiotics with Dr. Espitia but patient approached the desk and stated that she is leaving now and if we want her to sign papers we need to bring them now. Wendy BEST, took AMA papers to her as she was literally walking out the door. Physical Exam (OB) Vital Signs: Temp Pulse Resp BP Pulse Ox 97.8 F 84 16 122/78 100 08/16/20 08:00 08/16/20 08:00 08/16/20 08:00 08/16/20 08:00 08/16/20 08:00 Intake & Output 08/15/20 08/16/20 08/17/20 06:59 06:59 06:59 Intake Total 1000 Balance 1000 - Maternal Morbidity 59. Maternal Morbidity (serious complications experinced by the mother associated with labor and delivery: None of the above Objective-Diagnostic Laboratory: 08/15/20 06:05 08/14/20 01:50 EST 08/14/20 08/14/20 01:50 EST 01:50 EST WBC 12.9 H RBC 3.82 Hgb 10.0 L Hct 29.9 L MCV 78 L MCH 26.2 L MCHC 33.5 RDW 17.1 H Plt Count 391 Seg Neutrophils % 78.9 H Sodium 132.0 L Potassium 4.2 Chloride 103 Carbon Dioxide 17 L Anion Gap 12 BUN 10 Creatinine 0.47 L Glucose 113 H Uric Acid 6.7 H Calcium 10.0 Total Bilirubin 1.1 AST 45 H Alkaline Phosphatase 267 H Total Protein 7.3 Albumin 3.6 Assessment and Plan(PN) - Assessment and Plan (1) Vaginal delivery Is this a current diagnosis for this admission?: Yes (2) Hepatitis C carrier Is this a current diagnosis for this admission?: Yes (3) Abscess of left lower extremity Is this a current diagnosis for this admission?: Yes (4) IV drug abuse Is this a current diagnosis for this admission?: Yes (5) Smoker Is this a current diagnosis for this admission?: Yes - Time Spent with Patient Time with patient: Less than 15 minutes - Disposition Anticipated Discharge Disposition: Home, Self Care Anticipated Discharge Timeframe: within 24 hours
[2020-08-17 06:53] LABS: HEPATITS B SURFACE ANTIGEN Negative (Negative)
--- NOTE | 2020-08-17 12:19 | Admission Physical ---
Datetime Report Generated by CPN: 08/17/2020 12:19 CURRENT ADMISSION Chief Complaint: Uterine Contractions Indication for Induction: Not Applicable Admit Impression : , Intrauterine Admit Plan: Admit to Unit ALLERGIES Medication Allergies: sulfamethoxazole (08/14/2020); trimethoprim (08/14/2020) OBSTETRICAL HISTORY Obstetrical History Comments: g1-2008, , girl, 36 g2- 30 weeks, , 2010, male g3- 2010, , 37 weeks, male g4-2011, , girl, 36 weeks g5-current no care positive for chlamydia and iv drug use g5-current, no care, using heroin MEDICAL HISTORY Neuro/Epilepsy: Yes Medical History Comments: hepatitis c, iv drug user,just [facility] of [facility], childbirth x 4, necrotizing fascitis of the lower right leg has received three surgical debridements of wound and wound still is open and oozing. patient states that she has had multiple other spots on her body that have received treatment for infections of unknown orgin, seizures during withdrawals INFECTIOUS HISTORY Chlamydia: Yes Infectious History Comments: hepatitis c 2018? no current meds, chlamydia in past and positive on admission PHYSICAL EXAM General: Normal HEENT: Normal Neurologic: Normal Thyroid: Normal Heart: Normal Lungs: Normal Breast: Deferred Back: Normal Abdomen: Normal Genitourinary Exam: Normal Extremities: Abnormal DTRs: Normal Pelvic Type: Adequate Vital Signs: Reviewed FETUS A EGA: 37.5 Monitoring: External US FHR- Baseline: 140 FHR Category: Category I Admit Comment: We have uncertain dates and 35 weeks by ultrasound. The actimprom was positive but her adrian is 16 with a ballotable head. I am not confident that the membranes are ruptured. We may need to observe her. INFORMED CONSENT Signature: with User ID: [email or web address]
--- NOTE | 2020-08-17 12:20 | Admission Physical ---
Datetime Report Generated by CPN: 08/17/2020 12:19 CURRENT ADMISSION Chief Complaint: Uterine Contractions Indication for Induction: Not Applicable Admit Impression : , Intrauterine Admit Plan: Admit to Unit ALLERGIES Medication Allergies: Yes Medication Allergies: sulfamethoxazole (08/14/2020); trimethoprim (08/14/2020) Medication Allergies: bactrim-hives Latex: No Latex Allergies Food Allergies: denies Environmental Allergies: denies OBSTETRICAL HISTORY EDC: 08/30/2020 00:00 : 5 Para: 4 : 4 SAB: 0 IAB: 0 Ectopic: 0 Livin Cesareans: 0 VBACs: 0 Multiple Births: 0 Gestational Diabetes: No Rh Sensitization: No Incompetent Cervix: No DOMINIC: No Infertility: No ART Treatment: No Uterine Anomaly: No IUGR: No Hx Previous C/S: No Macrosomia: No Hx Loss/Stillborn: No PIH: No Hx : No Placenta Previa/Abruption: No Depression/PP Depression: No PTL/PROM: Yes Post Hemorrhage: No Current Procedures: Ultrasound Obstetrical History Comments: g1-2009, , girl, 36 g2- 30 weeks, , 2010, male g3- 2011, , 37 weeks, male g4-2012, , girl, 36 weeks g5-current no care positive for chlamydia and iv drug use g5-current, no care, using heroin SEE RECORDS Alcohol: No Marijuana : Yes Marijuana Frequency: Occasional Years Used: 2 Previous Treatment: None Cocaine: No Other Illicit Drugs: Yes Illicit Drug Comments: heroin iv daily, last used 10/30/20 for 5 years Cigarettes: Current Everyday Smoker. 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 patient states that she has had multiple other spots on her body that have received treatment for infections of unknown orgin, seizures during withdrawals INFECTIOUS HISTORY Gonorrhea: No Genital Herpes: No Chlamydia: Yes Tuberculosis: No Syphilis: No Hepatitis: No HIV/AIDS Exposure: No Rash or Viral Illness: No HPV: No Infectious History Comments: hepatitis c 2018? no current meds, chlamydia in past and positive on admission PHYSICAL EXAM General: Normal HEENT: Normal Neurologic: Normal Thyroid: Normal Heart: Normal Lungs: Normal Breast: Deferred Back: Normal Abdomen: Normal Genitourinary Exam: Normal Extremities: Abnormal DTRs: Normal Pelvic Type: Adequate Vital Signs: Reviewed FETUS A EGA: 37.5 Monitoring: External US FHR- Baseline: 140 FHR Category: Category I Admit Comment: We have uncertain dates and 35 weeks by ultrasound. The actimprom was positive but her adrian is 16 with a ballotable head. I am not confident that the membranes are ruptured. We may need to observe her. PLANS FOR LABOR AND DELIVERY Labor and Delivery: None Pain Management: Epidural Feeding Preference: Formula Benefit of Breast Feed Discussed: Yes INFORMED CONSENT Signature: with User ID: [email or web address]
== END 2020-08-16 09:30 | disposition left against medical advice (07) | DRG 806 ==
LOC: LC 00:59 → LR 01:00 → 2N 10:10
PROVIDERS: ADMIT Obstetrics & Gynecology; ATTEND Obstetrics & Gynecology
PROC: 10E0XZZ Delivery of Products of Conception, External Approach (ICD-10-PCS; principal; 2020-08-14)
DX: O99.834 Other infection carrier state complicating childbirth (principal); O99.324 Drug use complicating childbirth; Z37.0 Single live birth; L02.416 Cutaneous abscess of left lower limb; O98.32 Other infections with a predominantly sexual mode of transmission complicating childbirth; O98.42 Viral hepatitis complicating childbirth; O99.72 Diseases of the skin and subcutaneous tissue complicating childbirth; O99.334 Smoking (tobacco) complicating childbirth; Z22.8 Carrier of other infectious diseases; F17.210 Nicotine dependence, cigarettes, uncomplicated; F11.90 Opioid use, unspecified, uncomplicated; O77.0 Labor and delivery complicated by meconium in amniotic fluid; A56.8 Sexually transmitted chlamydial infection of other sites; F12.90 Cannabis use, unspecified, uncomplicated; F17.290 Nicotine dependence, other tobacco product, uncomplicated; Z88.2 Allergy status to sulfonamides; Z88.3 Allergy status to other anti-infective agents; Z87.51 Personal history of pre-term labor; Z3A.37 37 weeks gestation of pregnancy
CPT/HCPCS: 1961; 36415; 76815; 80053; 80307; 80349; 80353; 80361; 81001; 83615; 84112; 84550; 85025; 85027; 86592; 86701; 86762; 86803; 86804; 86850; 86900; 86901; 87070; 87077; 87081; 87186; 87205; 87210; 87340; 87491; 87591; 88307; 94760; G0480; J0456; J2060; J2405; J2540; J2590; J2795; J3010; J3490; J7060